=== PATIENT | male | born 1985 | race American Indian/Alaskan Native ===

== ENCOUNTER 2018-03-05 10:36 | Emergency (ER) | payer MEDICAID ==
[2018-03-05 12:03] VITALS: BP 140/83
[2018-03-05] MEDS ORDERED: XYLOCAINE 2% INFILTRATI ONE (12:51)
[2018-03-05] MEDS ORDERED: MOTRIN PO ONE (12:51)
--- NOTE | 2018-03-05 13:22 | Emergency Department Report ---
Abscess Boil HPI - HPI Chief Complaint: Skin/Abscess/Foreign Body Stated Complaint: ABSESS ON BACK Time Seen by Provider: 03/05/18 12:15 Duration: 3 Days Location: Back Severity: Mild History: Yes Pain, No Fever, No Purulent Drainage, No Numbness, No Foreign Body , No Previous History, No Insect Bite HPI: This is a 32-year-old male nontoxic, well nourished in appearance, no acute signs of distress presents to the ED with c/o of acute on chronic pilonidal abscess. Patient stated this is a on going since the age of 17. Patient stated had incision and drainage did a about 7 times total. Patient denies any pus, drainage, fever, chills, nausea, vomiting, chest precautions of breath, headache or stiff neck. Patient denies any trauma. Denies any allergies. Denies significant past medical history. Home Medications: Previous Rx's Medication Instructions Recorded Last Taken Type Clindamycin [Clindamycin CAP] 300 mg PO Q6H 7 Days capsule 03/05/18 Unknown Rx HYDROcodone/ACETAMINOPHEN [Surrency 1 each PO Q8H PRN #15 tablet 03/05/18 Unknown Rx 7.5-325 Tablet] Ibuprofen [Motrin] 600 mg PO Q8H PRN #30 tablet 03/05/18 Unknown Rx Allergies/Adverse Reactions: Allergies Allergy/AdvReac Type Severity Reaction Status Date / Time No Known Allergies Allergy Unverified 03/05/18 12:02 ED Review of Systems ROS: Stated complaint: ABSESS ON BACK Other details as noted in HPI Constitutional: denies: chills, fever Eyes: denies: eye pain, eye discharge, vision change ENT: denies: ear pain, throat pain Respiratory: denies: cough, shortness of breath, wheezing Cardiovascular: denies: chest pain, palpitations Endocrine: no symptoms reported Gastrointestinal: denies: abdominal pain, nausea, diarrhea Genitourinary: denies: urgency, dysuria Musculoskeletal: denies: back pain, joint swelling, arthralgia Skin: denies: rash, lesions Neurological: denies: headache, weakness, paresthesias Psychiatric: denies: anxiety, depression Hematological/Lymphatic: denies: easy bleeding, easy bruising ED Past Medical Hx - Surgical History Additional Surgical History: neck, back - Social History Smoking Status: Current Every Day Smoker Substance Use Type: None - Medications Home Medications: Home Medications Medication Instructions Recorded Confirmed Last Taken Type Clindamycin [Clindamycin CAP] 300 mg PO Q6H 7 Days capsule 03/05/18 Unknown Rx HYDROcodone/ACETAMINOPHEN [Surrency 1 each PO Q8H PRN #15 tablet 03/05/18 Unknown Rx 7.5-325 Tablet] Ibuprofen [Motrin] 600 mg PO Q8H PRN #30 tablet 03/05/18 Unknown Rx ED Abscess Boil Physical Exam - Exam General: Vital signs noted. No distress. Alert and acting appropriately. GENERAL: The patient is a well-developed, well-nourished in no apparent distress. Patient is alert and acting appropriately for age. Alert and oriented 3, no apparent distress, normal gait, atraumatic. HEENT: Head is normocephalic and atraumatic. PERRL, Extraocular muscles are intact. Pupils are equal, round, and reactive to light and accommodation. Nares appeared normal. Mouth is well hydrated and without lesions. Mucous membranes are moist. Posterior pharynx clear of any exudate or lesions. Mouth is well hydrated and without lesions. Tonsils not erythematous or swollen. Uvula midline. Tongue elevated. Mucous members are moist. Posterior pharynx clear, no exudate or lesions. Patent airways. NECK: Supple. No carotid bruits. No lymphadenopathy or thyromegaly.nontender. No meningitic signs are noted. LUNGS: Clear to auscultation. Non labor breathing. No intercostal retractions. Symmetrical with respiration, no wheezing, no rales, or crackles. HEART: Regular rate and rhythm without murmur, rubs or gallops. No reproducible. S1, S2 present, regular rate and rhythm without murmur, no rubs, no gallops. ABDOMEN: Soft, nontender, and nondistended. Positive bowel sounds. No hepatosplenomegaly was noted. No guarding or rebound tenderness, negative epigastric bruit. Negative psoas sign, negative moon sign, negative McBurneys sign EXTREMITIES: Without any cyanosis, clubbing, rash, lesions or edema. Peripheral pulses intact. Capillary refill less than 2 seconds. Full range of motion bilaterally. NEUROLOGIC: Cranial nerves II through XII are grossly intact. Alert and oriented x 3. Normal gait. Symmetrical strength and sensation. Reflexes 2+ throughout. Cerebellar testing normal. GCS score of 15. PSYCHIATRIC: Normal affect with no suicidal or homicidal ideations. Skin: 5 cm pilonidal abscess with indruation and flutance. Tender to touch. No pus or drainge. Front/Back of Body, Lg (Color): 1 - abscess Size: 5 cm Exam: Yes Tenderness, Yes Fluctuance, Yes Normal Neurologic Exam, Yes Normal Circulation, No Surrounding Cellulites/Erythema, No Lymphangitis, No Crepitation , No Heart Murmur I & D Note - I & D Note I & D Note: Under sterile field, I used Betadine to cleanse the area. I then used 2% lidocaine plain with 25-gauge 5/8 needle to inject area for anesthetic purposes. Total volume injected 5 mL. I then used an 11 blade to make a 1 cm incision. About 10 mL's of purulent drainage has been noted. I then used a hemostat to break the abscess formation. I then used sterile 0.9% normal saline flush to flush the wound with total volume of 80 mL used. I then put a 1 /2 iodoform packing to the incision. A sterile 4 x 4 with tape has been applied as dressing. Bleeding is under control. Patient tolerated the procedure well with no signs of distress noted. ED Course Vital Signs 03/05/18 11:57 Temperature 97.9 F Pulse Rate 83 Respiratory 20 Rate Blood Pressure 140/83 O2 Sat by Pulse 98 Oximetry - Reevaluation(s) Reevaluation #1: 03/05/18 13:22 Patient is speaking in full sentences with no signs of distress noted. - Consultations Consultation #1: 03/05/18 13:22 Patient has been consulted with Dr. Hassan about patient history, physical exam , and labs and examined and screened patient and agrees to ED plan of care. Critical care attestation.: If time is entered above; I have spent that time in minutes in the direct care of this critically ill patient, excluding procedure time. ED Medical Decision Making - Medical Decision Making This is a 32-year-old male that presents with pilonidal abscess. Patient is stable and was examined by me. This is incision and drainage and has been performed and patient tolerated well. A sterile dressing has been applied. Patient was educated on proper wound care. Patient is discharged with Clindamycin and NOrco and was instructed not to operate any machinery while taking Surrency due to drowsiness. Patient was instructed to return in 2 days for packing removal. Patient was instructed to refer to Follow-up with a primary care doctor in 3-5 days or if symptoms worsen and continue return to emergency room as soon as possible. At time of discharge, the patient does not seem toxic or ill in appearance. No acute signs of distress noted. Patient agrees to discharge treatment plan of care. No further questions noted by the patient. ED Disposition Clinical Impression: Pilonidal abscess, Encounter for incision and drainage procedure Disposition: TO HOME OR SELFCARE Is pt being admited?: No Does the pt Need Aspirin: No Condition: Stable Instructions: Abscess Incision and Drainage (ED), Abscess (ED) Additional Instructions: Follow-up with a primary care doctor in 3-5 days or if symptoms worsen and continue return to emergency room as soon as possible. Return in 2 days for packing removal and reassessment of your abscess. Prescriptions: Clindamycin [Clindamycin CAP] 300 mg PO Q6H 7 Days capsule HYDROcodone/ACETAMINOPHEN [Surrency 7.5-325 Tablet] 1 each PO Q8H PRN #15 tablet PRN Reason: Pain Ibuprofen [Motrin] 600 mg PO Q8H PRN #30 tablet PRN Reason: Pain Referrals: PRIMARY CAREMD [Primary Care Provider] - 3-5 Days SAFIA MOCK MD [Staff Physician] - 3-5 Days [facility] [Outside] - 3-5 Days [facility] [Outside] - 3-5 Days Forms: Work/School Release Form(ED)
== END 2018-03-05 14:42 | disposition home or self-care (01) ==
LOC: ED 10:36
DX: L05.01 Pilonidal cyst with abscess (principal); L02.212 Cutaneous abscess of back [any part, except buttock and flank]; F17.200 Nicotine dependence, unspecified, uncomplicated

== ENCOUNTER 2019-08-27 19:40 | Inpatient (IN) | payer MEDICAID ==
--- NOTE | 2019-08-27 19:50 | Event Note ---
ED Screening Note Date of service: 08/27/19 Time: 19:47 ED Screening Note: 33 y o female presents to Ed cc of sob and chestpain x 3 days denies asthma or medical hx This initial assessment/diagnostic orders/clinical plan/treatment(s) is/are subject to change based on patients health status, clinical progression and re- assessment by fellow clinical providers in the ED. Further treatment and workup at subsequent clinical providers discretion. Patient/guardian urged not to elope from the ED as their condition may be serious if not clinically assessed and managed. Initial orders include: labs,ekg,cxr
[2019-08-27 20:18] LABS: Basophils # (Auto) 0.1 K/mm3 (0.0-0.1); Eosinophils # (Auto) 0.1 K/mm3 (0.0-0.4); Eosinophils % (Auto) 0.9 % (0.0-4.3); Hematocrit 39.3 % (35.5-45.6); Hemoglobin 12.6 gm/dl (11.8-15.2); Lymphocytes # (Auto) 2.9 K/mm3 (1.2-5.4); Lymphocytes % (Auto) 20.9 % (13.4-35.0); Mean Corpuscular HGB Conc 32 % (32-34); Mean Corpuscular Volume 74 fl (84-94); Monocytes # (Auto) 0.9 K/mm3 (0.0-0.8); Monocytes % (Auto) 6.8 % (0.0-7.3); Platelet Count 247 K/mm3 (140-440); Red Blood Count 5.32 M/mm3 (3.65-5.03); Red Cell Distribution Width 16.1 % (13.2-15.2)
[2019-08-27 20:37] LABS: Creatine Kinase MB 2.6 ng/mL (0.0-4.0)
[2019-08-27 20:52] LABS: BUN/Creatinine Ratio 12; Blood Urea Nitrogen 11 mg/dL (9-20); Calcium 8.9 mg/dL (8.4-10.2); Hemolysis Index 8
--- NOTE | 2019-08-27 21:03 | XRay Report ---
CHEST 2 VIEWS INDICATION / CLINICAL INFORMATION: Dyspnea. COMPARISON: None available. FINDINGS: SUPPORT DEVICES: None. HEART / MEDIASTINUM: Moderate enlargement of the cardiac silhouette with pulmonary venous hypertensio n LUNGS / PLEURA: Mild increase in interstitial markings bilaterally. No pneumothorax. ADDITIONAL FINDINGS: No significant additional findings. IMPRESSION: 1. Moderate cardiomegaly and interstitial pulmonary edema. Signer Name: Ramses Paniagua MD Signed: 08/27/2019 8:58 PM Workstation Name: [id number]
--- NOTE | 2019-08-27 21:36 | Emergency Department Report ---
ED General Adult HPI - General Chief complaint: Chest Pain Stated complaint: DIFF BREATHING CHEST PAIN LEG SWOLLEN Time Seen by Provider: 08/27/19 21:16 Source: patient, RN notes reviewed Mode of arrival: Ambulatory Limitations: No Limitations - History of Present Illness Initial comments: Primary care doctor: [facility] The patient is a 33-year-old gentleman, with a history of morbid obesity. Unknown if he has a history of hypertension. Also has a history of hidradenitis suppuritiva. He presents to the ER with a complaint of bilateral leg pain and leg swelling, cough, chest wall pain, and shortness of breath. He does not have a history of sleep apnea that he is aware of. He denies DVT and pulmonary embolism risk factors. Symptoms have been going on for a few weeks, and there gradually getting worse. -: Gradual Location: chest, left, right, lower extremity Severity scale (0 -10): 4 Consistency: intermittent Improves with: rest Worsens with: movement - Related Data Previous Rx's Medication Instructions Recorded Last Taken Type Aspirin [Aspirin BABY CHEW TAB] 81 mg PO QDAY #30 tab.chew 08/28/19 Unknown Rx Metoprolol [Lopressor TAB] 50 mg PO BID #60 tablet 08/28/19 Unknown Rx Pantoprazole [Protonix] 40 mg PO QDAY #30 tablet 08/28/19 Unknown Rx Pravastatin [Pravachol] 40 mg PO QHS #30 tablet 08/28/19 Unknown Rx amLODIPine 10 mg PO QDAY #30 tablet 08/28/19 Unknown Rx Allergies Allergy/AdvReac Type Severity Reaction Status Date / Time No Known Allergies Allergy Unverified 03/05/18 12:02 ED Review of Systems ROS: Stated complaint: DIFF BREATHING CHEST PAIN LEG SWOLLEN Other details as noted in HPI Constitutional: malaise, weakness ENT: congestion Respiratory: cough, shortness of breath, SOB with exertion, SOB at rest, wheezing Cardiovascular: chest pain, edema. denies: syncope Gastrointestinal: denies: vomiting Genitourinary: denies: dysuria Musculoskeletal: arthralgia, myalgia Skin: denies: lesions Neurological: weakness Hematological/Lymphatic: denies: easy bleeding ED Past Medical Hx - Past Medical History Previous Medical History?: Yes Additional medical history: hidranitis supp. - Surgical History Past Surgical History?: Yes Additional Surgical History: neck, lower back, left rib, "cut open in my throat " - Social History Smoking Status: Current Every Day Smoker Substance Use Type: Marijuana - Medications Home Medications: Home Medications Medication Instructions Recorded Confirmed Last Taken Type Aspirin [Aspirin BABY CHEW TAB] 81 mg PO QDAY #30 tab.chew 08/28/19 Unknown Rx Metoprolol [Lopressor TAB] 50 mg PO BID #60 tablet 08/28/19 Unknown Rx Pantoprazole [Protonix] 40 mg PO QDAY #30 tablet 08/28/19 Unknown Rx Pravastatin [Pravachol] 40 mg PO QHS #30 tablet 08/28/19 Unknown Rx amLODIPine 10 mg PO QDAY #30 tablet 08/28/19 Unknown Rx ED Physical Exam - General Limitations: No Limitations General appearance: alert, in no apparent distress, anxious, obese - Head Head exam: Present: atraumatic, normocephalic - Eye Eye exam: Present: normal appearance, EOMI. Absent: nystagmus - ENT ENT exam: Present: normal exam, normal orophraynx, mucous membranes moist, normal external ear exam - Neck Neck exam: Present: normal inspection, full ROM. Absent: tenderness, meningismus - Respiratory Respiratory exam: Present: respiratory distress, rales, accessory muscle use. Absent: chest wall tenderness, decreased breath sounds - Cardiovascular Cardiovascular Exam: Present: normal rhythm, tachycardia, normal heart sounds. Absent: systolic murmur, diastolic murmur, rubs, gallop - GI/Abdominal GI/Abdominal exam: Present: soft. Absent: distended, tenderness, guarding, rebound, rigid, pulsatile mass - Rectal Rectal exam: Present: deferred - Extremities Exam Extremities exam: Present: normal inspection, full ROM, pedal edema, other (2+ pulses noted in the bilateral upper and lower extremities. There is no long bony tenderness. The muscular compartments are soft. The pelvis is stable.). Absent: calf tenderness - Back Exam Back exam: Present: normal inspection, full ROM. Absent: tenderness, CVA tenderness (R), CVA tenderness (L), paraspinal tenderness, vertebral tenderness - Neurological Exam Neurological exam: Present: alert, oriented X3, normal gait, other (there is no facial droop. The tongue is midline. The extraocular movements are intact bilaterally. ). Absent: motor sensory deficit - Psychiatric Psychiatric exam: Present: normal affect, normal mood - Skin Skin exam: Present: warm, dry, intact, normal color. Absent: rash ED Course Vital Signs 08/27/19 08/27/19 08/27/19 19:47 21:16 21:57 Temperature 100 F H Pulse Rate 107 H 102 H Respiratory 26 H 14 24 Rate Blood Pressure 189/110 177/116 Blood Pressure 189/110 [Right] O2 Sat by Pulse 98 97 Oximetry 08/27/19 08/27/19 08/27/19 22:00 22:01 23:20 Temperature Pulse Rate 95 H 95 H Respiratory 22 12 Rate Blood Pressure 177/116 Blood Pressure 153/96 [Right] O2 Sat by Pulse 99 Oximetry 08/27/19 08/28/19 08/28/19 23:30 00:30 01:20 Temperature Pulse Rate 94 H 95 H Respiratory 18 25 H Rate Blood Pressure 143/86 156/116 156/116 Blood Pressure [Right] O2 Sat by Pulse 96 97 98 Oximetry 08/28/19 08/28/19 08/28/19 01:30 01:40 01:50 Temperature Pulse Rate 92 H 91 H Respiratory Rate Blood Pressure 156/116 156/116 156/116 Blood Pressure [Right] O2 Sat by Pulse 92 99 99 Oximetry 08/28/19 08/28/19 08/28/19 02:00 02:10 02:27 Temperature Pulse Rate 95 H 94 H 97 H Respiratory Rate Blood Pressure 156/116 156/116 Blood Pressure [Right] O2 Sat by Pulse 96 98 Oximetry - Reevaluation(s) Reevaluation #1: 08/27/19 23:13 Differential diagnosis, including but not limited to: Congestive heart failure, right-sided heart failure, obstructive sleep apnea, pneumonia, pulmonary embolism, fluid overload, obesity hypoventilation syndrome Assessment and plan: 33-year-old gentleman, morbidly obese, reports that he has many symptoms of sleep apnea, including daytime sleepiness, shortness of breath during physical exertion, periods of falling asleep, with evidence of right- sided heart dysfunction, manifest by lower extremity edema, jugular venous distention. He denies DVT and pulmonary embolism risk factors. He is low risk by well's criteria. However, he is tachycardic, tachypnea with a low-grade temperature, a d-dimer was sent prior to my personal evaluation, and therefore, CT scan of the chest was ordered. Patient is amenable to hospitalization. He will be given pain medication, Lasix, and hydralazine. He is amenable to hospitalization. Extensive discussion had with patient and his significant other, we discussed the importance of diet and last modifications, weight loss, and compliant with outpatient follow-up to have a sleep study, and probable need for CPAP/ APAP She and family verbalize understanding and are amenable to this plan of care. 08/27/19 23:40 Reevaluation #2: 08/27/19 23:29 cta chest negative for pe Patient to be admitted to the medical service for further evaluation and management. I find the patient to be moderate risk by the heart score, he is given a heart score of 4. Reevaluation #3: 08/27/19 23:32 Hospital physician, Dr. Tijerina accepts patient to the medical service. ED Medical Decision Making - Lab Data Result diagrams: 08/27/19 20:04 08/27/19 20:04 Vital Signs 08/27/19 08/27/19 19:47 21:16 Temperature 100 F H Pulse Rate 107 H 102 H Respiratory 26 H 14 Rate Blood Pressure 189/110 177/116 Blood Pressure 189/110 [Right] O2 Sat by Pulse 98 97 Oximetry Lab Results 08/27/19 08/27/19 08/27/19 Range/Units 20:04 20:04 20:04 WBC 13.8 H (4.5-11.0) K/mm3 RBC 5.32 H (3.65-5.03) M/mm3 Hgb 12.6 (11.8-15.2) gm/dl Hct 39.3 (35.5-45.6) % MCV 74 L (84-94) fl MCH 24 L (28-32) pg MCHC 32 (32-34) % RDW 16.1 H (13.2-15.2) % Plt Count 247 (140-440) K/mm3 Lymph % (Auto) 20.9 (13.4-35.0) % [place] % (Auto) 6.8 (0.0-7.3) % Eos % (Auto) 0.9 (0.0-4.3) % Baso % (Auto) 1.0 (0.0-1.8) % Lymph # 2.9 (1.2-5.4) K/mm3 [place] # 0.9 H (0.0-0.8) K/mm3 Eos # 0.1 (0.0-0.4) K/mm3 Baso # 0.1 (0.0-0.1) K/mm3 Seg Neutrophils % 70.4 H (40.0-70.0) % Seg Neutrophils # 9.7 H (1.8-7.7) K/mm3 D-Dimer 255.72 H (0-234) ng/mlDDU Sodium 137 (137-145) mmol/L Potassium 4.0 (3.6-5.0) mmol/L Chloride 100.0 (98-107) mmol/L Carbon Dioxide 24 (22-30) mmol/L Anion Gap 17 mmol/L BUN 11 (9-20) mg/dL Creatinine 0.9 (0.8-1.5) mg/dL Estimated GFR > 60 ml/min BUN/Creatinine Ratio 12 % Glucose 136 H (75-100) mg/dL Calcium 8.9 (8.4-10.2) mg/dL Total Creatine Kinase 294 H (55-170) units/L CK-MB (CK-2) 2.6 (0.0-4.0) ng/mL CK-MB (CK-2) Rel Index 0.8 (0-4) Troponin T < 0.010 (0.00-0.029) ng/mL - EKG Data -: EKG Interpreted by Tx EKG shows normal: sinus rhythm Rate: normal - EKG Data 08/27/19 23:12 The EKG shows sinus tachycardia, prolonged QTC 500 ms, motion artifact, HO enlargement, abnormal EKG, no prior for comparison, the EKG is not consistent with ST elevation myocardial infarction. - Radiology Data Radiology results: report reviewed, image reviewed Print Report Referring Physician: SIMON GAMING Patient Name: MICHEAL BECERRA Date of : 1985 Sex: Male Report Date: 2019-08-27 Report Status: Finalized Findings [facility] [address] [place] [address] XRay Report Signed Patient: MICHEAL BECERRA MR#: [id number] 47 : 1985 Acct:[id number] Age/Sex: 33 / M ADM Date: 08/27/19 Loc: ED Attending Dr: Ordering Physician: JORDEN CARPIO Date of Service: 08/27/19 Procedure(s): XR chest routine 2V Accession Number(s): [id number] cc: JORDEN CARPIO Fluo ro Time In Minutes: CHEST 2 VIEWS INDICATION / CLINICAL INFORMATION: Dyspnea. COMPARISON: None available. FINDINGS: SUPPORT DEVICES: None. HEART / MEDIASTINUM: Moderate enlargement of the cardiac silhouette with pulmonary venous hypertension LUNGS / PLEURA: Mild increase in interstitial markings isael aterally. No pneumothorax. ADDITIONAL FINDINGS: No significant additional findings. IMPRESSION: 1. Moderate cardiomegaly and interstitial pulmonary edema. Signer Name: Ramses Paniagua MD Signed: 08/27/2019 8:58 PM Workstation Name: [id number] Transcribed By: YURI Dictated By: Ramses Paniagua MD Electronically Authenticated By: Ramses Paniagua MD Signed Date/Time: 08/27/192057 Critical care attestation.: If time is entered above; I have spent that time in minutes in the direct care of this critically ill patient, excluding procedure time. ED Disposition Clinical Impression: Hypertensive urgency, Acute chest pain, Acute dyspnea Disposition: -09 OP ADMIT IP TO THIS HOSP Is pt being admited?: Yes Does the pt Need Aspirin: Yes Condition: Stable
[2019-08-27] MEDS ORDERED: FAMOTIDINE 20 MG/2 ML INJ IV ONE (21:46)
[2019-08-27] MEDS ORDERED: hydrALAZINE 20 MG/1 ML INJ IV ONE (21:46)
[2019-08-27] MEDS ORDERED: ACETAMINOPHEN 325 MG TAB PO ONE (21:46)
[2019-08-27] MEDS ORDERED: FUROSEMIDE 40 MG/4 ML INJ IV ONE (21:47)
[2019-08-27 22:27] LABS: Alanine Aminotransferase 19 units/L (7-56); Albumin 3.4 g/dL (3.9-5)
[2019-08-27 22:31] LABS: Bilirubin,Direct < 0.2 mg/dL (0-0.2)
--- NOTE | 2019-08-27 23:09 | Cat Scan Report ---
CT angio chest INDICATION / CLINICAL INFORMATION: cp sob. TECHNIQUE: Precontrast bolus timing images were obtained followed by postcontrast axial and reformatted images. 3-plane MIP reconstructions were performed at an independent workstation by the technologist. All CT scans at this location are performed using CT dose reduction for ALARA by means of automated exposure control. COMPARISON: None available. FINDINGS: Pulmonary arterial enhancement is normal. No evidence of pulmonary embolus. No acute lung disease. Mediastinal images are normal. Limited upper abdominal and skeletal structures are unremarkable. IMPRESSION: 1. Negative pulmonary CTA. Signer Name: Ramses Paniagua MD Signed: 08/27/2019 11:04 PM Workstation Name: [id number]
[2019-08-27] MEDS ORDERED: ONDANSETRON 4 MG/2 ML INJ IV PRN (23:44)
[2019-08-27] MEDS ORDERED: ALBUTEROL 2.5 MG/3 ML NEBU IH PRN (23:44)
[2019-08-27] MEDS ORDERED: NITROGLYCERIN 0.4 MG TAB SUBL SL PRN (23:44)
[2019-08-27] MEDS ORDERED: ACETAMINOPHEN 325 MG TAB PO PRN (23:44)
[2019-08-27] MEDS ORDERED: hydrALAZINE 20 MG/1 ML INJ IV PRN (23:50)
--- NOTE | 2019-08-28 01:41 | History and Physical Report ---
<JEFF CHAN - Last Filed: 08/28/19 01:36> History of Present Illness Date of examination: 08/27/19 Date of admission: 08/27/19 23:44 Chief complaint: Chest Pain, SOB History of present illness: 33-year-old -[place] obese male is a current every day marijuana smoker with history of hypertension noncompliant with medication, and hidranitis suppurativa who presents to [facility] ED with complaints of sub sternal non-radiating chest pain and sob for the past week. Pt's is present at bedside and has assisted in providing history. Pt states that he has been experiencing intermittent CP and SOB with activity for the past week. Over the past 2 days his chest pain has become more frequent and is SOB has become more persistent. He rates his pain 7/10 and describes it as sharp. The chest pain is substernal and non-radiating. He denies n/v, or diaphoresis. His SOB is worst with activity and improves with rest. Pt also complains of BLE edema. Pt admits to being non- compliant with antihypertensive meds. Past History Past Medical History: hypertension (non compliant with meds), other ( hidranitis suppurativa) Past Surgical History: Other ( neck, lower back, left rib, ) Social history: , other (everyday marijuana smoker) Family history: no significant family history Medications and Allergies Allergies Allergy/AdvReac Type Severity Reaction Status Date / Time No Known Allergies Allergy Unverified 03/05/18 12:02 Home Medications Medication Instructions Recorded Confirmed Last Taken Type Clindamycin [Clindamycin CAP] 300 mg PO Q6H 7 Days capsule 03/05/18 Unknown Rx HYDROcodone/ACETAMINOPHEN [[place] 1 each PO Q8H PRN #15 tablet 03/05/18 Unknown Rx 7.5-325 Tablet] Ibuprofen [Motrin] 600 mg PO Q8H PRN #30 tablet 03/05/18 Unknown Rx Active Meds: Active Medications Acetaminophen (Tylenol) 650 mg PO Q4H PRN PRN Reason: Pain MILD(1-3)/Fever >100.5/[place] Albuterol (Proventil) 2.5 mg IH Q3HRT PRN PRN Reason: Shortness Of Breath Alprazolam (Xanax) 0.5 mg PO ONCE ONE Stop: 08/28/19 02:11 Aspirin (Baby Aspirin) 81 mg PO QDAY [facility] Heparin Sodium (Porcine) (Heparin) 5,000 unit SUB-Q Q12HR [facility] Hydralazine HCl (Apresoline) 10 mg IV Q4H PRN PRN Reason: Blood Pressure Morphine Sulfate (Morphine) 2 mg IV Q4H PRN PRN Reason: Pain, Moderate (4-6) Nitroglycerin (Nitrostat) 0.4 mg SL Q5M PRN PRN Reason: Chest Pain Ondansetron HCl (Zofran) 4 mg IV Q8H PRN PRN Reason: Nausea And Vomiting Sodium Chloride (Sodium Chloride Flush Syringe 10 Ml) 10 ml IV BID DANNIE Sodium Chloride (Sodium Chloride Flush Syringe 10 Ml) 10 ml IV PRN PRN PRN Reason: LINE FLUSH Review of Systems All systems: negative Cardiovascular: chest pain, shortness of breath, dyspnea on exertion, leg edema Respiratory: cough, shortness of breath, dyspnea on exertion Exam - Physical Exam Narrative exam: Physical exam General appearance: Present: No acute distress, alert and oriented 3, obese, adult -[place] male - EENT Eyes: Present: PERRL, EOM intact ENT: hearing intact, normal dentition - Neck Neck: Present: supple, normal ROM - Respiratory Respiratory effort: Non-labored Respiratory: Diminished bases - Cardiovascular Heart rate: 95 (bpm) Rhythm: Sinus rhythm Heart Sounds: Present: S1 & S2. Absent: rub, click - Extremities Extremities: no ischemia, pulses intact, pitting bilateral lower extremity edema - Peripheral Assessment Peripheral Pulses: within normal limits - Abdominal General gastrointestinal: Obese, soft, non-tender, normal bowel sounds - Integumentary Integumentary: Present: warm, dry - Musculoskeletal Musculoskeletal: Able to move all extremities -Neurological Neurological: CN II-XII intact - Psychiatric Psychiatric: Appropriate for situation ,cooperative - Constitutional Vitals: Temp Pulse Resp BP Pulse Ox 100 F H 95 H 25 H 156/116 97 08/27/19 19:47 08/28/19 00:30 08/28/19 00:30 08/28/19 00:30 08/28/19 00:30 Results - Labs CBC & Chem 7: 08/27/19 20:04 08/27/19 20:04 Labs: Laboratory Last Values WBC 13.8 K/mm3 (4.5-11.0) H 08/27/19 20:04 RBC 5.32 M/mm3 (3.65-5.03) H 08/27/19 20:04 Hgb 12.6 gm/dl (11.8-15.2) 08/27/19 20:04 Hct 39.3 % (35.5-45.6) 08/27/19 20:04 MCV 74 fl (84-94) L 08/27/19 20:04 MCH 24 pg (28-32) L 08/27/19 20:04 MCHC 32 % (32-34) 08/27/19 20:04 RDW 16.1 % (13.2-15.2) H 08/27/19 20:04 Plt Count 247 K/mm3 (140-440) 08/27/19 20:04 Lymph % (Auto) 20.9 % (13.4-35.0) 08/27/19 20:04 Davison % (Auto) 6.8 % (0.0-7.3) 08/27/19 20:04 Eos % (Auto) 0.9 % (0.0-4.3) 08/27/19 20:04 Baso % (Auto) 1.0 % (0.0-1.8) 08/27/19 20:04 Lymph # 2.9 K/mm3 (1.2-5.4) 08/27/19 20:04 Davison # 0.9 K/mm3 (0.0-0.8) H 08/27/19 20:04 Eos # 0.1 K/mm3 (0.0-0.4) 08/27/19 20:04 Baso # 0.1 K/mm3 (0.0-0.1) 08/27/19 20:04 Seg Neutrophils % 70.4 % (40.0-70.0) H 08/27/19 20:04 Seg Neutrophils # 9.7 K/mm3 (1.8-7.7) H 08/27/19 20:04 D-Dimer 255.72 ng/mlDDU (0-234) H 08/27/19 20:04 Sodium 137 mmol/L (137-145) 08/27/19 20:04 Potassium 4.0 mmol/L (3.6-5.0) 08/27/19 20:04 Chloride 100.0 mmol/L (98-107) 08/27/19 20:04 Carbon Dioxide 24 mmol/L (22-30) 08/27/19 20:04 Anion Gap 17 mmol/L 08/27/19 20:04 BUN 11 mg/dL (9-20) 08/27/19 20:04 Creatinine 0.9 mg/dL (0.8-1.5) 08/27/19 20:04 Estimated GFR > 60 ml/min 08/27/19 20:04 BUN/Creatinine Ratio 12 % 08/27/19 20:04 Glucose 136 mg/dL (75-100) H 08/27/19 20:04 Calcium 8.9 mg/dL (8.4-10.2) 08/27/19 20:04 Magnesium 1.70 mg/dL (1.7-2.3) 08/27/19 21:52 Total Bilirubin 0.20 mg/dL (0.1-1.2) 08/27/19 21:52 Direct Bilirubin < 0.2 mg/dL (0-0.2) 08/27/19 21:52 Indirect Bilirubin 0.0 mg/dL 08/27/19 21:52 AST 19 units/L (5-40) 08/27/19 21:52 ALT 19 units/L (7-56) 08/27/19 21:52 Alkaline Phosphatase 103 units/L (35-129) 08/27/19 21:52 Total Creatine Kinase 275 units/L (55-170) H 08/27/19 21:52 CK-MB (CK-2) 2.6 ng/mL (0.0-4.0) 08/27/19 20:04 CK-MB (CK-2) Rel Index 0.8 (0-4) 08/27/19 20:04 Troponin T < 0.010 ng/mL (0.00-0.029) 08/27/19 20:04 NT-Pro-B Natriuret Pep 427.1 pg/mL (0-450) 08/27/19 21:52 Total Protein 5.9 g/dL (6.3-8.2) L 08/27/19 21:52 Albumin 3.4 g/dL (3.9-5) L 08/27/19 21:52 Albumin/Globulin Ratio 1.4 % 08/27/19 21:52 - Imaging and Cardiology Imaging and Cardiology: CXR: FINDINGS: SUPPORT DEVICES: None. HEART / MEDIASTINUM: Moderate enlargement of the cardiac silhouette with pulmonary venous hypertension LUNGS / PLEURA: Mild increase in interstitial markings bilaterally. No pneumothorax. ADDITIONAL FINDINGS: No significant additional findings. IMPRESSION: 1. Moderate cardiomegaly and interstitial pulmonary edema. CT angio Chest: FINDINGS: Pulmonary arterial enhancement is normal. No evidence of pulmonary embolus. No acute lung disease. Mediastinal images are normal. Limited upper abdominal and skeletal structures are unremarkable. IMPRESSION: 1. Negative pulmonary CTA. Assessment and Plan Assessment and plan: 33-year-old -[place] obese male is a current every day marijuana smoker with history of hypertension noncompliant with medication, and hidranitis suppurativa who presents to [facility] ED with complaints of sub sternal non-radiating chest pain and sob for the past week, which has worsened over the past 2 days. Acute Chest Pain -Initiate chest pain protocol -Continuous telemetry monitoring -Continue supportive care -Pain mgmt -Troponin negative x1 , will continue to trend -EKG unrevealing for acute ischemic abnormalities -Lexiscan pending -Cardiology consulted Hypertensive urgency -BP on admission 177/116 -Hx Hypertension noncompliant with medication -Continue to monitor BP -Start Norvasc 10 mg daily -IV antihypertensive when necessary Elevated d-dimer -255.72 -CT angiogram chest negative for PE Non-Pitting bilateral lower extremity Edema -Bilateral lower extremity Doppler pending Obesity -BMI 71.3kg -Diet and lifestyle modifications -May benefit from OP weight mgmt program Leukocytosis -WBC on admission 13.8 -MAXIMUM TEMPERATURE 100.0 -Cultures pending -Will hold off on starting abx for now -Continue to monitor CBC -History of hidranitis suppurativa chronic intermittent antibiotic use Marijuana abuse -Current every day marijuana smoker -Counseled for cessation DVT PPX -on Heparin -SCD's Advance Directives: No VTE prophylaxis?: Chemical Plan of care discussed with patient/family: Yes <SAL LAZO - Last Filed: 08/28/19 02:29> History of Present Illness Date of admission: 08/27/19 23:44 Medications and Allergies Active Meds: Active Medications Acetaminophen (Tylenol) 650 mg PO Q4H PRN PRN Reason: Pain MILD(1-3)/Fever >100.5/[place] Albuterol (Proventil) 2.5 mg IH Q3HRT PRN PRN Reason: Shortness Of Breath Amlodipine Besylate (Amlodipine) 10 mg PO QDAY DANNIE Aspirin (Baby Aspirin) 81 mg PO QDAY DANNIE Heparin Sodium (Porcine) (Heparin) 5,000 unit SUB-Q Q12HR [facility] Hydralazine HCl (Apresoline) 10 mg IV Q4H PRN PRN Reason: Blood Pressure Morphine Sulfate (Morphine) 2 mg IV Q4H PRN PRN Reason: Pain, Moderate (4-6) Nitroglycerin (Nitrostat) 0.4 mg SL Q5M PRN PRN Reason: Chest Pain Ondansetron HCl (Zofran) 4 mg IV Q8H PRN PRN Reason: Nausea And Vomiting Sodium Chloride (Sodium Chloride Flush Syringe 10 Ml) 10 ml IV BID DANNIE Sodium Chloride (Sodium Chloride Flush Syringe 10 Ml) 10 ml IV PRN PRN PRN Reason: LINE FLUSH Exam - Constitutional Vitals: Temp Pulse Resp BP Pulse Ox 100 F H 95 H 25 H 156/116 97 08/27/19 19:47 08/28/19 00:30 08/28/19 00:30 08/28/19 00:30 08/28/19 00:30 Results - Labs CBC & Chem 7: 08/27/19 20:04 08/27/19 20:04 Labs: Laboratory Last Values WBC 13.8 K/mm3 (4.5-11.0) H 08/27/19 20:04 RBC 5.32 M/mm3 (3.65-5.03) H 08/27/19 20:04 Hgb 12.6 gm/dl (11.8-15.2) 08/27/19 20:04 Hct 39.3 % (35.5-45.6) 08/27/19 20:04 MCV 74 fl (84-94) L 08/27/19 20:04 MCH 24 pg (28-32) L 08/27/19 20:04 MCHC 32 % (32-34) 08/27/19 20:04 RDW 16.1 % (13.2-15.2) H 08/27/19 20:04 Plt Count 247 K/mm3 (140-440) 08/27/19 20:04 Lymph % (Auto) 20.9 % (13.4-35.0) 08/27/19 20:04 [place] % (Auto) 6.8 % (0.0-7.3) 08/27/19 20:04 Eos % (Auto) 0.9 % (0.0-4.3) 08/27/19 20:04 Baso % (Auto) 1.0 % (0.0-1.8) 08/27/19 20:04 Lymph # 2.9 K/mm3 (1.2-5.4) 08/27/19 20:04 [place] # 0.9 K/mm3 (0.0-0.8) H 08/27/19 20:04 Eos # 0.1 K/mm3 (0.0-0.4) 08/27/19 20:04 Baso # 0.1 K/mm3 (0.0-0.1) 08/27/19 20:04 Seg Neutrophils % 70.4 % (40.0-70.0) H 08/27/19 20:04 Seg Neutrophils # 9.7 K/mm3 (1.8-7.7) H 08/27/19 20:04 D-Dimer 255.72 ng/mlDDU (0-234) H 08/27/19 20:04 Sodium 137 mmol/L (137-145) 08/27/19 20:04 Potassium 4.0 mmol/L (3.6-5.0) 08/27/19 20:04 Chloride 100.0 mmol/L (98-107) 08/27/19 20:04 Carbon Dioxide 24 mmol/L (22-30) 08/27/19 20:04 Anion Gap 17 mmol/L 08/27/19 20:04 BUN 11 mg/dL (9-20) 08/27/19 20:04 Creatinine 0.9 mg/dL (0.8-1.5) 08/27/19 20:04 Estimated GFR > 60 ml/min 08/27/19 20:04 BUN/Creatinine Ratio 12 % 08/27/19 20:04 Glucose 136 mg/dL (75-100) H 08/27/19 20:04 Hemoglobin A1c 6.5 % (4-6) H 08/27/19 20:04 Calcium 8.9 mg/dL (8.4-10.2) 08/27/19 20:04 Magnesium 1.70 mg/dL (1.7-2.3) 08/27/19 21:52 Total Bilirubin 0.20 mg/dL (0.1-1.2) 08/27/19 21:52 Direct Bilirubin < 0.2 mg/dL (0-0.2) 08/27/19 21:52 Indirect Bilirubin 0.0 mg/dL 08/27/19 21:52 AST 19 units/L (5-40) 08/27/19 21:52 ALT 19 units/L (7-56) 08/27/19 21:52 Alkaline Phosphatase 103 units/L (35-129) 08/27/19 21:52 Total Creatine Kinase 275 units/L (55-170) H 08/27/19 21:52 CK-MB (CK-2) 2.6 ng/mL (0.0-4.0) 08/27/19 20:04 CK-MB (CK-2) Rel Index 0.8 (0-4) 08/27/19 20:04 Troponin T < 0.010 ng/mL (0.00-0.029) 08/27/19 20:04 NT-Pro-B Natriuret Pep 427.1 pg/mL (0-450) 08/27/19 21:52 Total Protein 5.9 g/dL (6.3-8.2) L 08/27/19 21:52 Albumin 3.4 g/dL (3.9-5) L 08/27/19 21:52 Albumin/Globulin Ratio 1.4 % 08/27/19 21:52 Assessment and Plan Assessment and plan: 33-year-old man with hypertension noncompliant with medication, morbid obesity, hidranitis suppurativa comes to the ER with complaints of sharp chest pain in the upper chest associated with shortness of breath. He has not taken antihypertensives in 4 years. Patient with hypertensive urgency, agree with plan as stated above. Patient will not fit on table to do stress test b/c of his weight, cardiology consult pending. Add echo, lopressor, aspirin
[2019-08-28] MEDS ORDERED: ALPRAZolam 0.5 MG TAB PO ONE (02:10)
--- NOTE | 2019-08-28 02:33 | Vascular Lab Report ---
DUPLEX DOPPLER LOWER EXTREMITY VEINS, BILATERAL INDICATION / CLINICAL INFORMATION: b/l lower ext swelling. TECHNIQUE: Duplex doppler imaging was performed through the veins of both lower extremities using venous manjinder luigi and other maneuvers. COMPARISON: None available. FINDINGS: Right Common Femoral vein: Negative. Right Femoral vein: Negative. Right Popliteal vein: Negative. Right Calf veins: Negative. Left Common Femoral vein: Negative. Left Femoral vein: Negative. Left Popliteal vein: Negative. Left Calf veins: Negative. Additional findings: None. IMPRESSION: 1. No sonographic evidence for DVT in either lower extremity. Signer Name: Fernando Thorne MD Signed: 08/28/2019 2:29 AM Workstation Name: [employer]
[2019-08-28] MEDS: MORPHINE 2 MG/1 ML INJ IV PRN (04:36)
[2019-08-28] MEDS ORDERED: ALPRAZolam 0.5 MG TAB ONE (04:48)
[2019-08-28] MEDS ORDERED: METOPROLOL TARTRATE 25 MG TAB PO SCH (10:00)
[2019-08-28] MEDS ORDERED: ASPIRIN 81 MG TAB CHEW PO SCH (10:00)
[2019-08-28] MEDS: ASPIRIN 81 MG TAB CHEW PO SCH (10:07)
[2019-08-28] MEDS: amLODIPine 10 MG TAB PO SCH (10:07)
[2019-08-28] MEDS: HEPARIN 5,000 UNIT/1 ML VIAL SUB-Q SCH ×2 (10:08→22:05)
--- NOTE | 2019-08-28 11:15 | Discharge Summary ---
Providers - Providers Date of Admission: 08/27/19 23:44 Date of discharge: 08/28/19 Attending physician: PRO CUETO 08/27/19 Consult to Cardiac Rehabilitation [CONS] Routine Reason For Exam: Phase I 08/27/19 23:46 Consult to Dietitian/Nutrition [CONS] Routine Physician Instructions: Reason For Exam: Reason for Consult: Diet education 08/28/19 00:04 Consult to Physician [CONS] Routine Comment: Consulting Provider: DANICA FIELD Physician Instructions: Reason For Exam: chest pain Primary care physician: FIELD COUNSEL Hospitalization Condition: Stable Pertinent studies: CXR CTA chest LE venous doppler 2d echo Hospital course: 33-year-old -[place] obese male is a current every day marijuana smoker with history of hypertension noncompliant with medication, and hidranitis suppurativa who presents to [facility] ED with complaints of sub sternal non-radiating chest pain and sob for the past week, which has worsened over the past 2 days. Discharge diagnosis: Acute Chest Pain - likely from GERD -Troponin negative -EKG unrevealing for acute ischemic abnormalities, CTA chest negative -Lexiscan cannot done b/o overwt, 2d echo obtained -Cardiology consulted - recommended an outpatient cardiac PET scan. Hypertensive urgency -BP on admission 177/116 -Hx Hypertension and noncompliant with medication -Started Norvasc 10 mg daily, metoprolol 50mg BID and given IV antihypertensive when necessary Elevated d-dimer -255.72 -CT angiogram chest negative for PE Non-Pitting bilateral lower extremity Edema -Bilateral lower extremity Doppler negative, could be from chronic venous stasis Obesity -BMI 71.3kg -Diet and lifestyle modifications -May benefit from OP weight mgmt program Leukocytosis -WBC on admission 13.8 -MAXIMUM TEMPERATURE 100.0 -Cultures negative -Will hold off on starting abx for now -History of hidranitis suppurativa chronic intermittent antibiotic use Marijuana abuse -Current every day marijuana smoker -Counseled for cessation DVT PPX -on Heparin -SCD's Disposition: DC-01 TO HOME OR SELFCARE Time spent for discharge: 34 minutes Core Measure Documentation - Palliative Care Palliative Care/ Comfort Measures: Not Applicable - Core Measures Any of the following diagnoses?: none Exam - Physical Exam Narrative exam: General appearance: Present: No acute distress, alert and oriented 3, obese, adult -[place] male - EENT Eyes: Present: PERRL, EOM intact ENT: hearing intact, normal dentition - Neck Neck: Present: supple, normal ROM - Respiratory Respiratory effort: Non-labored Respiratory: Diminished bases - Cardiovascular Heart rate: 95 (bpm) Rhythm: Sinus rhythm Heart Sounds: Present: S1 & S2. Absent: rub, click - Extremities Extremities: no ischemia, pulses intact, pitting bilateral lower extremity edema - Peripheral Assessment Peripheral Pulses: within normal limits - Abdominal General gastrointestinal: Obese, soft, non-tender, normal bowel sounds - Integumentary Integumentary: Present: warm, dry - Musculoskeletal Musculoskeletal: Able to move all extremities -Neurological Neurological: CN II-XII intact - Psychiatric Psychiatric: Appropriate for situation ,cooperative - Constitutional Vitals: Temp Pulse Resp BP Pulse Ox 98.8 F 92 H 24 154/100 90 08/28/19 07:55 08/28/19 08:00 08/28/19 07:55 08/28/19 07:55 08/28/19 07:55 Plan Activity: advance as tolerated Weight Bearing Status: Weight Bear as Tolerated Diet: low fat, low salt Follow up with: PRIMARY CARE, [Primary Care Provider] - 3-5 Days Prescriptions: Pravastatin [Pravachol] 40 mg PO QHS #30 tablet amLODIPine 10 mg PO QDAY #30 tablet Aspirin [Aspirin BABY CHEW TAB] 81 mg PO QDAY #30 tab.chew Metoprolol [Lopressor TAB] 50 mg PO BID #60 tablet Pantoprazole [Protonix] 40 mg PO QDAY #30 tablet
--- NOTE | 2019-08-28 11:40 | Consultation ---
<ZULEMA LANIER - Last Filed: 08/28/19 11:35> History of Present Illness Consult date: 08/28/19 Consult reason: chest pain History of present illness: Patient is a 33-year old morbidly obese male with a BMI greater than 70. He presented with complaints of shortness of breath, coughs and chest pain, admitted with uncontrolled hypertension. Systolic blood pressure of 189 in the emergency department. Patient gives a history of hypertension, hyperlipidemia, noncompliant with medications. A cardiac consultation has been requested for chest pain evaluation. Chest pain is atypical, musculoskeletal. Patient reports chest pain with deep inspirations and with position changes. A chest CT scan reports no evidence of pulmonary embolism. Cycled troponins are normal and his ECG is benign. Past History Past Medical History: hypertension (non compliant with meds), other ( hidranitis suppurativa) Past Surgical History: Other ( neck, lower back, left rib, ) Social history: , other (everyday marijuana smoker) Family history: no significant family history Medications and Allergies Allergies Allergy/AdvReac Type Severity Reaction Status Date / Time No Known Allergies Allergy Unverified 03/05/18 12:02 Home Medications Medication Instructions Recorded Confirmed Last Taken Type Aspirin [Aspirin BABY CHEW TAB] 81 mg PO QDAY #30 tab.chew 08/28/19 Unknown Rx Metoprolol [Lopressor TAB] 50 mg PO BID #60 tablet 08/28/19 Unknown Rx Pantoprazole [Protonix] 40 mg PO QDAY #30 tablet 08/28/19 Unknown Rx Pravastatin [Pravachol] 40 mg PO QHS #30 tablet 08/28/19 Unknown Rx amLODIPine 10 mg PO QDAY #30 tablet 08/28/19 Unknown Rx Active Meds: Active Medications Acetaminophen (Tylenol) 650 mg PO Q4H PRN PRN Reason: Pain MILD(1-3)/Fever >100.5/[place] Albuterol (Proventil) 2.5 mg IH Q3HRT PRN PRN Reason: Shortness Of Breath Amlodipine Besylate (Amlodipine) 10 mg PO QDAY [facility] Last Admin: 08/28/19 10:07 Dose: 10 mg Documented by: Aspirin (Baby Aspirin) 81 mg PO QDAY [facility] Last Admin: 08/28/19 10:07 Dose: 81 mg Documented by: Heparin Sodium (Porcine) (Heparin) 5,000 unit SUB-Q Q12HR [facility] Last Admin: 08/28/19 10:08 Dose: 5,000 unit Documented by: Hydralazine HCl (Apresoline) 10 mg IV Q4H PRN PRN Reason: Blood Pressure Metoprolol Tartrate (Metoprolol) 50 mg PO BID [facility] Morphine Sulfate (Morphine) 2 mg IV Q4H PRN PRN Reason: Pain, Moderate (4-6) Last Admin: 08/28/19 04:36 Dose: 2 mg Documented by: Nitroglycerin (Nitrostat) 0.4 mg SL Q5M PRN PRN Reason: Chest Pain Ondansetron HCl (Zofran) 4 mg IV Q8H PRN PRN Reason: Nausea And Vomiting Pravastatin Sodium (Pravachol) 40 mg PO QHS [facility] Sodium Chloride (Sodium Chloride Flush Syringe 10 Ml) 10 ml IV BID [facility] Last Admin: 08/28/19 10:07 Dose: 10 ml Documented by: Sodium Chloride (Sodium Chloride Flush Syringe 10 Ml) 10 ml IV PRN PRN PRN Reason: LINE FLUSH Physical Examination Vital Signs Temp Pulse Resp BP Pulse Ox 100 F H 107 H 26 H 189/110 98 08/27/19 19:47 08/27/19 19:47 08/27/19 19:47 08/27/19 19:47 08/27/19 19:47 General appearance: obese HEENT: Positive: PERRL Neck: Positive: trachea midline Cardiac: Positive: Reg Rate and Rhythm Lungs: Positive: Decreased Breath Sounds Neuro: Positive: Grossly Intact Extremities: Absent: edema Results 08/27/19 20:04 08/27/19 20:04 Cardiac Enzymes 08/27/19 08/27/19 Range/Units 20:04 21:52 AST 19 (5-40) units/L CK-MB (CK-2) 2.6 (0.0-4.0) ng/mL CBC 08/27/19 Range/Units 20:04 WBC 13.8 H (4.5-11.0) K/mm3 RBC 5.32 H (3.65-5.03) M/mm3 Hgb 12.6 (11.8-15.2) gm/dl Hct 39.3 (35.5-45.6) % Plt Count 247 (140-440) K/mm3 Lymph # 2.9 (1.2-5.4) K/mm3 [place] # 0.9 H (0.0-0.8) K/mm3 Eos # 0.1 (0.0-0.4) K/mm3 Baso # 0.1 (0.0-0.1) K/mm3 Comprehensive Metabolic Panel 08/27/19 08/27/19 Range/Units 20:04 21:52 Sodium 137 (137-145) mmol/L Potassium 4.0 (3.6-5.0) mmol/L Chloride 100.0 (98-107) mmol/L Carbon Dioxide 24 (22-30) mmol/L BUN 11 (9-20) mg/dL Creatinine 0.9 (0.8-1.5) mg/dL Glucose 136 H (75-100) mg/dL Calcium 8.9 (8.4-10.2) mg/dL Direct Bilirubin < 0.2 (0-0.2) mg/dL Indirect Bilirubin 0.0 mg/dL AST 19 (5-40) units/L ALT 19 (7-56) units/L Alkaline Phosphatase 103 (35-129) units/L Total Protein 5.9 L (6.3-8.2) g/dL Albumin 3.4 L (3.9-5) g/dL Assessment and Plan Atypical chest pain, musculoskeletal CTA: no evidence of PE Hypertension, uncontrolled Noncompliant with medications Morbid obesity Recommend: Optimal BP management. Echocardiogram for LVEF assessment. Patient exceeds weight limit for ischemic cardiac evaluation. We will recommend an outpatient cardiac PET scan. <REMA KEBEDE - Last Filed: 08/28/19 15:24> Medications and Allergies Active Meds: Active Medications Acetaminophen (Tylenol) 650 mg PO Q4H PRN PRN Reason: Pain MILD(1-3)/Fever >100.5/[place] Albuterol (Proventil) 2.5 mg IH Q3HRT PRN PRN Reason: Shortness Of Breath Amlodipine Besylate (Amlodipine) 10 mg PO QDAY [facility] Last Admin: 08/28/19 10:07 Dose: 10 mg Documented by: Aspirin (Baby Aspirin) 81 mg PO QDAY [facility] Last Admin: 08/28/19 10:07 Dose: 81 mg Documented by: Heparin Sodium (Porcine) (Heparin) 5,000 unit SUB-Q Q12HR [facility] Last Admin: 08/28/19 10:08 Dose: 5,000 unit Documented by: Hydralazine HCl (Apresoline) 10 mg IV Q4H PRN PRN Reason: Blood Pressure Metoprolol Tartrate (Metoprolol) 50 mg PO BID [facility] Morphine Sulfate (Morphine) 2 mg IV Q4H PRN PRN Reason: Pain, Moderate (4-6) Last Admin: 08/28/19 04:36 Dose: 2 mg Documented by: Nitroglycerin (Nitrostat) 0.4 mg SL Q5M PRN PRN Reason: Chest Pain Ondansetron HCl (Zofran) 4 mg IV Q8H PRN PRN Reason: Nausea And Vomiting Pravastatin Sodium (Pravachol) 40 mg PO QHS [facility] Sodium Chloride (Sodium Chloride Flush Syringe 10 Ml) 10 ml IV BID [facility] Last Admin: 08/28/19 10:07 Dose: 10 ml Documented by: Sodium Chloride (Sodium Chloride Flush Syringe 10 Ml) 10 ml IV PRN PRN PRN Reason: LINE FLUSH Physical Examination Vital Signs Temp Pulse Resp BP Pulse Ox 100 F H 107 H 26 H 189/110 98 08/27/19 19:47 08/27/19 19:47 08/27/19 19:47 08/27/19 19:47 08/27/19 19:47 Results 08/27/19 20:04 08/27/19 20:04 Cardiac Enzymes 08/27/19 08/27/19 Range/Units 20:04 21:52 AST 19 (5-40) units/L CK-MB (CK-2) 2.6 (0.0-4.0) ng/mL CBC 08/27/19 Range/Units 20:04 WBC 13.8 H (4.5-11.0) K/mm3 RBC 5.32 H (3.65-5.03) M/mm3 Hgb 12.6 (11.8-15.2) gm/dl Hct 39.3 (35.5-45.6) % Plt Count 247 (140-440) K/mm3 Lymph # 2.9 (1.2-5.4) K/mm3 [place] # 0.9 H (0.0-0.8) K/mm3 Eos # 0.1 (0.0-0.4) K/mm3 Baso # 0.1 (0.0-0.1) K/mm3 Comprehensive Metabolic Panel 08/27/19 08/27/19 Range/Units 20:04 21:52 Sodium 137 (137-145) mmol/L Potassium 4.0 (3.6-5.0) mmol/L Chloride 100.0 (98-107) mmol/L Carbon Dioxide 24 (22-30) mmol/L BUN 11 (9-20) mg/dL Creatinine 0.9 (0.8-1.5) mg/dL Glucose 136 H (75-100) mg/dL Calcium 8.9 (8.4-10.2) mg/dL Direct Bilirubin < 0.2 (0-0.2) mg/dL Indirect Bilirubin 0.0 mg/dL AST 19 (5-40) units/L ALT 19 (7-56) units/L Alkaline Phosphatase 103 (35-129) units/L Total Protein 5.9 L (6.3-8.2) g/dL Albumin 3.4 L (3.9-5) g/dL Assessment and Plan I've seen and evaluated the patient and agree with the assessment and plan. Patient presents with atypical chest pain. Echocardiogram is pending. Further ischemic evaluation for this patient is recommended however his weight exceeds the weight limits for the nuclear table and cardiac cath table. Recommend outpatient cardiac PET scan.
[2019-08-28] MEDS ORDERED: FLU VACC QUAD 2019-20 (3 YR UP)/PF 60 MCG/0.5 ML SYRINGE IM ONE (12:00)
--- NOTE | 2019-08-28 16:10 | Progress Note ---
Assessment and Plan New onset CHFrEF 30-35% - patient with cough, b/l LE edema - 2d echo showed Ef 30-35%, has no prior h/o HF - will place on IV lasix, follow further cardiology recommendation Acute Chest Pain -Troponin negative -EKG unrevealing for acute ischemic abnormalities, CTA chest negative -Lexiscan cannot done b/o over wt, 2d echo obtained showed low EF -Cardiology consulted - will follow recommendation Hypertensive urgency -BP on admission 177/116 -Hx Hypertension and noncompliant with medication -Started Norvasc 10 mg daily, metoprolol 50mg BID - will give IV antihypertensive when necessary Elevated d-dimer -255.72 -CT angiogram chest negative for PE Non-Pitting bilateral lower extremity Edema -Bilateral lower extremity Doppler negative, likely from acute HF Obesity -BMI 71.3kg -Diet and lifestyle modifications -May benefit from OP weight mgmt program Leukocytosis -WBC on admission 13.8 -MAXIMUM TEMPERATURE 100.0 -Cultures negative -Will start on empiric abx with levaquin -History of hidranitis suppurativa chronic intermittent antibiotic use Marijuana abuse -Current every day marijuana smoker -Counseled for cessation DVT PPX -on Heparin -SCD's - Physical Exam Narrative exam: General appearance: Present: No acute distress, alert and oriented 3, obese, adult -[place] male - EENT Eyes: Present: PERRL, EOM intact ENT: hearing intact, normal dentition - Neck Neck: Present: supple, normal ROM - Respiratory Respiratory effort: Non-labored Respiratory: Diminished bases - Cardiovascular Heart rate: 95 (bpm) Rhythm: Sinus rhythm Heart Sounds: Present: S1 & S2. Absent: rub, click - Extremities Extremities: no ischemia, pulses intact, pitting bilateral lower extremity edema - Peripheral Assessment Peripheral Pulses: within normal limits - Abdominal General gastrointestinal: Obese, soft, non-tender, normal bowel sounds - Integumentary Integumentary: Present: warm, dry - Musculoskeletal Musculoskeletal: Able to move all extremities -Neurological Neurological: CN II-XII intact - Psychiatric Psychiatric: Appropriate for situation ,cooperative Subjective Date of service: 08/28/19 Interval history: Patient seen and examined c/o cough and SOB with exertion still c/o intermittent chest pain Objective - Constitutional Vitals: Vital Signs - 12hr 08/28/19 08/28/19 08/28/19 07:55 08:00 12:05 Temperature 98.8 F 97.5 F L Pulse Rate 98 H 92 H 90 Respiratory 24 22 Rate Blood Pressure 154/100 144/105 O2 Sat by Pulse 90 87 Oximetry - Labs CBC & Chem 7: 08/27/19 20:04 08/27/19 20:04 Labs: Abnormal lab results 08/27/19 08/27/19 08/27/19 Range/Units 20:04 20:04 20:04 WBC 13.8 H (4.5-11.0) K/mm3 RBC 5.32 H (3.65-5.03) M/mm3 MCV 74 L (84-94) fl MCH 24 L (28-32) pg RDW 16.1 H (13.2-15.2) % [place] # 0.9 H (0.0-0.8) K/mm3 Seg Neutrophils % 70.4 H (40.0-70.0) % Seg Neutrophils # 9.7 H (1.8-7.7) K/mm3 D-Dimer 255.72 H (0-234) ng/mlDDU Glucose 136 H (75-100) mg/dL Hemoglobin A1c (4-6) % Total Creatine Kinase 294 H (55-170) units/L Total Protein (6.3-8.2) g/dL Albumin (3.9-5) g/dL 08/27/19 08/27/19 Range/Units 20:04 21:52 WBC (4.5-11.0) K/mm3 RBC (3.65-5.03) M/mm3 MCV (84-94) fl MCH (28-32) pg RDW (13.2-15.2) % [place] # (0.0-0.8) K/mm3 Seg Neutrophils % (40.0-70.0) % Seg Neutrophils # (1.8-7.7) K/mm3 D-Dimer (0-234) ng/mlDDU Glucose (75-100) mg/dL Hemoglobin A1c 6.5 H (4-6) % Total Creatine Kinase 275 H (55-170) units/L Total Protein 5.9 L (6.3-8.2) g/dL Albumin 3.4 L (3.9-5) g/dL
[2019-08-28] MEDS: levoFLOXacin 750 MG TAB PO SCH (17:14)
[2019-08-28] MEDS: FUROSEMIDE 40 MG/4 ML INJ IV SCH (17:14)
[2019-08-28] MEDS: METOPROLOL TARTRATE 25 MG TAB PO SCH ×2 (22:00→22:06)
[2019-08-28] MEDS: PRAVASTATIN 40 MG TAB PO SCH (22:07)
[2019-08-29] MEDS ORDERED: diphenhydrAMINE 25 MG CAP PO PRN (00:05)
[2019-08-29 05:56] LABS: Basophils % (Auto) 0.4 % (0.0-1.8); Eosinophils # (Auto) 0.2 K/mm3 (0.0-0.4); Eosinophils % (Auto) 2.1 % (0.0-4.3); Hematocrit 41.4 % (35.5-45.6); Hemoglobin 13.2 gm/dl (11.8-15.2); Lymphocytes # (Auto) 1.9 K/mm3 (1.2-5.4); Lymphocytes % (Auto) 18.5 % (13.4-35.0); Mean Corpuscular HGB Conc 32 % (32-34); Mean Corpuscular Volume 75 fl (84-94); Monocytes # (Auto) 0.8 K/mm3 (0.0-0.8); Monocytes % (Auto) 7.3 % (0.0-7.3); Platelet Count 264 K/mm3 (140-440); Red Blood Count 5.55 M/mm3 (3.65-5.03)
[2019-08-29 06:45] LABS: BUN/Creatinine Ratio 14; Blood Urea Nitrogen 11 mg/dL (9-20); Calcium 8.8 mg/dL (8.4-10.2); Hemolysis Index 5
[2019-08-29] MEDS: FUROSEMIDE 40 MG/4 ML INJ IV SCH (09:09)
[2019-08-29] MEDS: ASPIRIN 81 MG TAB CHEW PO SCH (09:09)
[2019-08-29] MEDS: amLODIPine 10 MG TAB PO SCH (09:09)
[2019-08-29] MEDS: METOPROLOL TARTRATE 25 MG TAB PO SCH (09:09)
[2019-08-29] MEDS: levoFLOXacin 750 MG TAB PO SCH (09:10)
[2019-08-29] MEDS: HEPARIN 5,000 UNIT/1 ML VIAL SUB-Q SCH ×2 (09:10→22:01)
--- NOTE | 2019-08-29 10:03 | Progress Note ---
Assessment and Plan Atypical chest pain, musculoskeletal CTA: no evidence of PE Hypertension, uncontrolled Noncompliant with medications Morbid obesity Underlying sleep apnea Echocardiogram reveals a 4 chamber dilated cardiomyopathy with a decreased ejection fraction 30-35%. Advised sodium/fluid restriction. Initiated medical therapy for dilated cardiomyopathy to include diuretics, beta blockers and afterload reduction. Patient exceeds weight limit for inpatient ischemic cardiac evaluation. We will recommend an outpatient cardiac PET scan. Subjective Date of service: 08/29/19 Interval history: Patient reports is breathing is somewhat better. Blood pressure is still not optimal, currently 148/100. Objective Vital Signs Temp Pulse Resp BP Pulse Ox 08/29/19 08:42 98.5 F 86 20 148/100 93 08/29/19 05:46 98.0 F 08/29/19 05:40 87 20 144/99 94 08/28/19 23:19 99.4 F 08/28/19 23:18 94 H 20 148/100 92 08/28/19 22:06 94 H 149/91 08/28/19 21:30 99.5 F 08/28/19 21:28 94 H 24 149/91 94 08/28/19 20:00 94 H 08/28/19 16:38 98.0 F 95 H 22 154/102 96 08/28/19 15:38 96 08/28/19 12:05 97.5 F L 90 22 144/105 87 - Physical Examination General: No Apparent Distress, Other (obesity) HEENT: Positive: PERRL Neck: Positive: trachea midline Cardiac: Positive: Reg Rate and Rhythm Lungs: Positive: Decreased Breath Sounds Neuro: Positive: Grossly Intact Extremities: Absent: edema - Labs and Meds CBC 08/29/19 Range/Units 05:12 WBC 10.5 (4.5-11.0) K/mm3 RBC 5.55 H (3.65-5.03) M/mm3 Hgb 13.2 (11.8-15.2) gm/dl Hct 41.4 (35.5-45.6) % Plt Count 264 (140-440) K/mm3 Lymph # 1.9 (1.2-5.4) K/mm3 [place] # 0.8 (0.0-0.8) K/mm3 Eos # 0.2 (0.0-0.4) K/mm3 Baso # 0.0 (0.0-0.1) K/mm3 Comprehensive Metabolic Panel 08/29/19 Range/Units 05:12 Sodium 138 (137-145) mmol/L Potassium 4.5 (3.6-5.0) mmol/L Chloride 99.6 (98-107) mmol/L Carbon Dioxide 24 (22-30) mmol/L BUN 11 (9-20) mg/dL Creatinine 0.8 (0.8-1.5) mg/dL Glucose 120 H (75-100) mg/dL Calcium 8.8 (8.4-10.2) mg/dL
[2019-08-29] MEDS ORDERED: LISINOPRIL 5 MG TAB PO SCH (14:00)
[2019-08-29] MEDS: MORPHINE 2 MG/1 ML INJ IV PRN ×2 (14:01→22:02)
[2019-08-29] MEDS: NIFEdipine XL 30 MG TAB PO SCH (17:37)
[2019-08-29] MEDS ORDERED: FUROSEMIDE 40 MG/4 ML INJ IV SCH (18:00)
--- NOTE | 2019-08-29 18:06 | Progress Note ---
Assessment and Plan Assessment and plan: --Medical noncompliance; Patient strongly advised to comply with medications, diet Follow-up visits with cardiology, primary care, pulmonary Patient verbalized understanding --Acute systolic congestive heart failure EF 30-35% Continue heart failure medications IV lasix, beta-blockers KORY inhibitors Cardiology following --Four-chamber dilated cardiomyopathy; on echo EF 30 to 35%, continue heart failure medications Input output monitoring, low-sodium diet, fluid restriction --Acute Chest Pain ; Unable to get Lexiscan stress test, due to morbid obesity Ischemia work-up as outpatient per cardiology --Hypertensive urgency; present on admission Moderate control, continue current antihypertensives And when necessary medications --Elevated d-dimer CT angiogram chest negative for PE Bilateral lower extremity Doppler negative for DVT --Morbid obesity: BMI 71.3kg Patient needs aggressive weight reduction Dietary modification and exercise as tolerated When medically stable Patient may benefit from outpatient bariatric surgical consultation For weight reduction program when stable --Possible obstructive sleep apnea; BiPAP CPAP at night Patient needs to follow-up with pulmonary for outpatient sleep study --Leukocytosis; resolved WBC on admission 13.8, Cultures negative to date On empiric abx with levaquin Patient has history of hidranitis suppurativa chronic intermittent antibiotic use --Substance abuse /marijuana abuse Advised to quit recreational drug use Patient verbalized understanding --DVT prophylaxis: Heparin/SCDs Monitor closely and adjust management as needed Possible discharge in 1 to 2 days when medically stable History Interval history: Patient seen and examined medical records reviewed Patient continues to have mild shortness of breath Denies chest pain or palpitation Vital signs noted Hospitalist Physical - Constitutional Vitals: Temp Pulse Resp BP Pulse Ox 98.6 F 80 20 142/86 95 08/29/19 12:03 08/29/19 12:03 08/29/19 12:03 08/29/19 12:03 08/29/19 12:03 General appearance: Present: mild distress, well-nourished, obese (Morbidly obese) - EENT Eyes: Present: PERRL, EOM intact - Neck Neck: Present: supple, normal ROM - Respiratory Respiratory effort: normal Respiratory: bilateral: diminished, rales, negative: rhonchi, wheezing - Cardiovascular Rhythm: regular Heart Sounds: Present: S1 & S2 - Extremities Extremities: no ischemia, No edema - Abdominal General gastrointestinal: soft, non-tender, non-distended, normal bowel sounds - Integumentary Integumentary: Present: clear, warm - Psychiatric Psychiatric: appropriate mood/affect, cooperative - Neurologic Neurologic: moves all extremities Results - Labs CBC & Chem 7: 08/29/19 05:12 08/29/19 05:12 Labs: Laboratory Last Values WBC 10.5 K/mm3 (4.5-11.0) 08/29/19 05:12 RBC 5.55 M/mm3 (3.65-5.03) H 08/29/19 05:12 Hgb 13.2 gm/dl (11.8-15.2) 08/29/19 05:12 Hct 41.4 % (35.5-45.6) 08/29/19 05:12 MCV 75 fl (84-94) L 08/29/19 05:12 MCH 24 pg (28-32) L 08/29/19 05:12 MCHC 32 % (32-34) 08/29/19 05:12 RDW 16.0 % (13.2-15.2) H 08/29/19 05:12 Plt Count 264 K/mm3 (140-440) 08/29/19 05:12 Lymph % (Auto) 18.5 % (13.4-35.0) 08/29/19 05:12 [place] % (Auto) 7.3 % (0.0-7.3) 08/29/19 05:12 Eos % (Auto) 2.1 % (0.0-4.3) 08/29/19 05:12 Baso % (Auto) 0.4 % (0.0-1.8) 08/29/19 05:12 Lymph # 1.9 K/mm3 (1.2-5.4) 08/29/19 05:12 [place] # 0.8 K/mm3 (0.0-0.8) 08/29/19 05:12 Eos # 0.2 K/mm3 (0.0-0.4) 08/29/19 05:12 Baso # 0.0 K/mm3 (0.0-0.1) 08/29/19 05:12 Seg Neutrophils % 71.7 % (40.0-70.0) H 08/29/19 05:12 Seg Neutrophils # 7.5 K/mm3 (1.8-7.7) 08/29/19 05:12 D-Dimer 255.72 ng/mlDDU (0-234) H 08/27/19 20:04 Sodium 138 mmol/L (137-145) 08/29/19 05:12 Potassium 4.5 mmol/L (3.6-5.0) 08/29/19 05:12 Chloride 99.6 mmol/L (98-107) 08/29/19 05:12 Carbon Dioxide 24 mmol/L (22-30) 08/29/19 05:12 Anion Gap 19 mmol/L 08/29/19 05:12 BUN 11 mg/dL (9-20) 08/29/19 05:12 Creatinine 0.8 mg/dL (0.8-1.5) 08/29/19 05:12 Estimated GFR > 60 ml/min 08/29/19 05:12 BUN/Creatinine Ratio 14 % 08/29/19 05:12 Glucose 120 mg/dL (75-100) H 08/29/19 05:12 Hemoglobin A1c 6.5 % (4-6) H 08/27/19 20:04 Calcium 8.8 mg/dL (8.4-10.2) 08/29/19 05:12 Magnesium 1.70 mg/dL (1.7-2.3) 08/27/19 21:52 Total Bilirubin 0.20 mg/dL (0.1-1.2) 08/27/19 21:52 Direct Bilirubin < 0.2 mg/dL (0-0.2) 08/27/19 21:52 Indirect Bilirubin 0.0 mg/dL 08/27/19 21:52 AST 19 units/L (5-40) 08/27/19 21:52 ALT 19 units/L (7-56) 08/27/19 21:52 Alkaline Phosphatase 103 units/L (35-129) 08/27/19 21:52 Total Creatine Kinase 275 units/L (55-170) H 08/27/19 21:52 CK-MB (CK-2) 2.6 ng/mL (0.0-4.0) 08/27/19 20:04 CK-MB (CK-2) Rel Index 0.8 (0-4) 08/27/19 20:04 Troponin T < 0.010 ng/mL (0.00-0.029) 08/28/19 05:18 NT-Pro-B Natriuret Pep 427.1 pg/mL (0-450) 08/27/19 21:52 Total Protein 5.9 g/dL (6.3-8.2) L 08/27/19 21:52 Albumin 3.4 g/dL (3.9-5) L 08/27/19 21:52 Albumin/Globulin Ratio 1.4 % 08/27/19 21:52 Active Medications - Current Medications Current Medications: Generic Name Dose Route Start Last Admin Trade Name Freq PRN Reason Stop Dose Admin Acetaminophen 650 mg 08/27/19 23:44 Tylenol PO Q4H PRN Pain MILD(1-3)/Fever >100.5/[place] Albuterol 2.5 mg 08/27/19 23:44 Proventil IH Q3HRT PRN Shortness Of Breath Aspirin 81 mg 08/28/19 10:00 08/29/19 09:09 Baby Aspirin PO 81 mg QDAY [facility] Administration Carvedilol 6.25 mg 08/29/19 22:00 Coreg PO BID [facility] Diphenhydramine HCl 25 mg 08/29/19 00:05 08/29/19 00:49 Benadryl PO 25 mg QHS PRN Administration Sleep Furosemide 40 mg 08/30/19 10:00 Lasix PO DAILY@0600 [facility] Heparin Sodium (Porcine) 5,000 unit 08/28/19 10:00 08/29/19 09:10 Heparin SUB-Q 5,000 unit Q12HR [facility] Administration Hydralazine HCl 10 mg 08/27/19 23:50 Apresoline IV Q4H PRN Blood Pressure Levofloxacin 750 mg 08/28/19 18:00 08/29/19 09:10 Levaquin PO 750 mg Q24HR [facility] Administration Lisinopril 20 mg 08/30/19 10:00 Zestril PO QDAY [facility] Morphine Sulfate 2 mg 08/27/19 23:44 08/29/19 14:01 Morphine IV 2 mg Q4H PRN Administration Pain, Moderate (4-6) Nifedipine 30 mg 08/29/19 15:00 08/29/19 17:37 Procardia Xl PO 30 mg QDAY [facility] Administration Nitroglycerin 0.4 mg 12/03/19 23:44 Nitrostat SL Q5M PRN Chest Pain Ondansetron HCl 4 mg 08/27/19 23:44 Zofran IV Q8H PRN Nausea And Vomiting Pravastatin Sodium 40 mg 08/28/19 22:00 08/28/19 22:07 Pravachol PO 40 mg QHS [facility] Administration Sodium Chloride 10 ml 08/28/19 10:00 08/29/19 09:10 Sodium Chloride Flush Syringe 10 Ml IV 10 ml BID [facility] Administration Sodium Chloride 10 ml 08/27/19 23:44 Sodium Chloride Flush Syringe 10 Ml IV PRN PRN LINE FLUSH Spironolactone 25 mg 08/30/19 10:00 Aldactone PO QDAY [facility] Nutrition/Malnutrition Assess - Dietary Evaluation Nutrition/Malnutrition Findings: Nutrition Notes Start: 08/28/19 13:02 Freq: Status: Active Protocol: Document 08/28/19 13:02 CT (Rec: 08/28/19 13:05 CT [id number]) Co-Sign 08/28/19 13:02 LP Nutrition Notes Need for Assessment generated from: MD Order,Education Initial or Follow up Brief Note Current Diagnosis Hypertension Other Pertinent Diagnosis Obese, Marijuanna Abuse, noncompliance with meds, edema Current Diet NPO now Labs/Tests A1c 6.5 Pertinent Medications Reviewed Height 5 ft 9 in Weight 217.3 kg [place] Body Weight (kg) 72.72 BMI 70.7 Weight Status Morbidly Obese Subjective/Other Information Consult for diet education for HTN diet and DM diet. Pt accepted the education and handouts. Pt is NPO for an ECHO procedure. Pt states that he was eating well CHANGE ADVISOR. Burn Absent Trauma Absent GI Symptoms None Current % PO Negligible Minimum of two criteria No physical signs of malnutrition #1 Nutrition Diagnosis Food and nutrition-related knowledge deficit Etiology no prior knowledge of HTN or DM diet As Evidenced by Signs and Symptoms Pt acceptance of diet education and handouts Nutrition Intervention Teaching Recipient Patient Learning Readiness Good Teaching Methods Discussion,Handout Response to Teaching Verbalize understanding Education Handouts Provided HTN diet DM diet Barriers to Learning No Barriers RD phone number provided Yes Patient aware of follow up options Yes Revisit per MD consult or patient Sign Off request:
[2019-08-29] MEDS ORDERED: carvediloL 3.125 MG TAB PO SCH (22:00)
[2019-08-29] MEDS: PRAVASTATIN 40 MG TAB PO SCH (22:02)
[2019-08-29] MEDS: carvediloL 6.25 MG TAB PO SCH (22:02)
[2019-08-30] MEDS: MORPHINE 2 MG/1 ML INJ IV PRN (04:33)
[2019-08-30 07:11] LABS: BUN/Creatinine Ratio 14; Blood Urea Nitrogen 11 mg/dL (9-20); Calcium 8.7 mg/dL (8.4-10.2); Hemolysis Index 2
[2019-08-30] MEDS: levoFLOXacin 750 MG TAB PO SCH (09:16)
[2019-08-30] MEDS: ASPIRIN 81 MG TAB CHEW PO SCH (09:16)
[2019-08-30] MEDS: HEPARIN 5,000 UNIT/1 ML VIAL SUB-Q SCH (09:17)
[2019-08-30] MEDS: NIFEdipine XL 30 MG TAB PO SCH (09:17)
[2019-08-30] MEDS: carvediloL 6.25 MG TAB PO SCH (09:17)
[2019-08-30] MEDS ORDERED: LISINOPRIL 20 MG TAB PO SCH (10:00)
[2019-08-30] MEDS ORDERED: FUROSEMIDE 40 MG TAB PO SCH (10:00)
[2019-08-30] MEDS ORDERED: SPIRONOLACTONE 25 MG TAB PO SCH (10:00)
--- NOTE | 2019-08-30 10:37 | Progress Note ---
Assessment and Plan Atypical chest pain, musculoskeletal CTA: no evidence of PE Uncontrolled Hypertension Noncompliant with medications Morbid obesity Underlying sleep apnea Echocardiogram reveals a 4 chamber dilated cardiomyopathy with a decreased ejection fraction 30-35%.The duration of this cardiomyopathy is uncertain. Recommendations: Advised sodium/fluid restriction. Continue medical therapy for dilated cardiomyopathy to include diuretics. Patient exceeds weight limit for inpatient ischemic cardiac evaluation. We will recommend an outpatient cardiac PET scan. Stable cardiac jackson. Once discharged patient will follow up with [facility] September 05 at 230. Subjective Date of service: 08/30/19 Interval history: Patient is sitting up in the bedside chair. He has no complaints. Blood pressure is currently 152/78. Objective Vital Signs Temp Pulse Resp BP Pulse Ox 08/30/19 08:38 98.5 F 89 16 152/78 99 08/30/19 04:36 98.5 F 85 18 101/60 96 08/30/19 00:13 18 08/29/19 23:15 98.2 F 92 H 18 134/85 97 08/29/19 21:00 87 08/29/19 19:31 98.2 F 105 H 18 119/65 95 08/29/19 12:03 98.6 F 80 20 142/86 95 - Physical Examination General: No Apparent Distress, Other (obesity) HEENT: Positive: PERRL Neck: Positive: trachea midline Cardiac: Positive: Reg Rate and Rhythm Lungs: Positive: Decreased Breath Sounds Neuro: Positive: Grossly Intact Extremities: Absent: edema - Labs and Meds Comprehensive Metabolic Panel 08/30/19 Range/Units 06:06 Sodium 136 L (137-145) mmol/L Potassium 4.8 (3.6-5.0) mmol/L Chloride 100.3 (98-107) mmol/L Carbon Dioxide 22 (22-30) mmol/L BUN 11 (9-20) mg/dL Creatinine 0.8 (0.8-1.5) mg/dL Glucose 117 H (75-100) mg/dL Calcium 8.7 (8.4-10.2) mg/dL
--- NOTE | 2019-08-30 12:27 | Discharge Summary ---
Providers - Providers Date of Admission: 08/28/19 16:09 Date of discharge: 08/30/19 Attending physician: TRACY KENNEY 08/27/19 Consult to Cardiac Rehabilitation [CONS] Routine Reason For Exam: Phase I 08/27/19 23:46 Consult to Dietitian/Nutrition [CONS] Routine Physician Instructions: Reason For Exam: Reason for Consult: Diet education 08/28/19 00:04 Consult to Physician [CONS] Routine Comment: Consulting Provider: DANICA FIELD Physician Instructions: Reason For Exam: chest pain Primary care physician: TRAFFIC CONTROL OPERATOR Hospitalization Reason for admission: Chest pain/Shortness of breath Condition: Stable Pertinent studies: CXR CTA chest Lower ext doppler Echo Hospital course: 33-year-old -Tajik obese male is a current every day marijuana smoker with history of hypertension noncompliant with medication, and hidranitis suppurativa who presents to [facility] ED with complaints of sub sternal non-radiating chest pain and sob for the past week. Pt's is present at bedside and has assisted in providing history. Pt states that he has been experiencing int ermittent CP and SOB with activity for the past week. Over the past 2 days his chest pain has become more frequent and is SOB has become more persistent.Admitted,managed appropriately,evaluated by propeller engineer ,medications optimised. Could not get Stress test due to his morbid obesity. edications optimised.Today patient feels better,no new complaints.vital signs stable. Physical exam unremarkable., Stable at discharge. Discharge Diagnosis: --Acute Chest Pain ; Unable to get Lexiscan stress test, due to morbid obesity Ischemia work-up as outpatient per cardiology --Acute systolic congestive heart failure EF 30-35% Continue heart failure medications IV lasix, beta-blockers KORY inhibitors Cardiology following --Four-chamber dilated cardiomyopathy; on echo EF 30 to 35%, continue heart failure medications Input output monitoring, low-sodium diet, fluid restriction --Hypertensive urgency; present on admission Moderate control, continue current antihypertensives And when necessary medications --Elevated d-dimer CT angiogram chest negative for PE Bilateral lower extremity Doppler negative for DVT --Medical noncompliance; Patient strongly advised to comply with medications, diet Follow-up visits with cardiology, primary care, pulmonary Patient verbalized understanding --Morbid obesity: BMI 71.3kg Patient needs aggressive weight reduction Dietary modification and exercise as tolerated Patient may benefit from outpatient bariatric surgical consultation For weight reduction program when stable --Possible obstructive sleep apnea; BiPAP CPAP at night Patient needs to follow-up with pulmonary for outpatient sleep study --Leukocytosis; resolved WBC on admission 13.8, Cultures negative to date On empiric abx with levaquin Patient has history of hidranitis suppurativa chronic intermittent antibiotic use --Substance abuse /marijuana abuse Advised to quit recreational drug use Patient verbalized understanding. Stable at discharge. Disposition: DC-01 TO HOME OR SELFCARE Time spent for discharge: 32 min Core Measure Documentation - Palliative Care Palliative Care/ Comfort Measures: Not Applicable - Core Measures Any of the following diagnoses?: none Exam - Constitutional Vitals: Temp Pulse Resp BP Pulse Ox 98.5 F 87 16 152/78 99 08/30/19 08:38 08/30/19 09:00 08/30/19 08:38 08/30/19 08:38 08/30/19 08:38 General appearance: Present: no acute distress, well-nourished - EENT Eyes: Present: PERRL, EOM intact - Neck Neck: Present: supple, normal ROM - Respiratory Respiratory effort: normal - Cardiovascular Rhythm: regular Heart Sounds: Present: S1 & S2 - Extremities Extremities: no ischemia, No edema - Abdominal General gastrointestinal: Present: soft, non-tender, non-distended, normal bowel sounds - Integumentary Integumentary: Present: clear, warm - Musculoskeletal Musculoskeletal: strength equal bilaterally, generalized weakness - Psychiatric Psychiatric: appropriate mood/affect, cooperative - Neurologic Neurologic: moves all extremities Plan Activity: no restrictions Diet: other (cardiac diet) Additional Instructions: Weight reduction when medically stable. You need outpatient sleep study to rule out obstructive sleep apnea at pulmonary physicians office. follow up with [facility] September 05 at 2:30. Follow up with: CELESTINE HOLLAND MD [Primary Care Provider] - 3-5 Days JIA DUVAL MD [Staff Physician] - 7 Days YASEMIN NOLASCO MD [Staff Physician] - 09/05/19 2:30 pm Prescriptions: Spironolactone [Aldactone] 25 mg PO QDAY #30 tablet Aspirin [Aspirin BABY CHEW TAB] 81 mg PO QDAY #30 tab.chew carvediloL [Coreg] 6.25 mg PO BID #60 tablet Furosemide [Lasix TAB] 40 mg PO DAILY@0600 #30 tablet Pravastatin [Pravachol] 40 mg PO QHS #30 tablet ALBUTEROL Inhaler (OR & NICU) [ProAir HFA Inhaler] 2 puff IH QID PRN #8.5 gram PRN Reason: Shortness Of Breath NIFEdipine XL [Procardia Xl] 30 mg PO QDAY #30 tablet lisinopriL [Zestril TAB] 20 mg PO QDAY #30 tablet
[2019-08-30 13:29] VITALS: BP 143/85
== END 2019-08-30 17:38 | disposition home or self-care (01) | DRG 292 ==
LOC: ED 19:40 → 4A 23:44 → INTOOBSV 23:44 → OBSVTOIN 08-28 16:09
PROVIDERS: ADMIT Internal Medicine; ATTEND Internal Medicine
DX: I11.0 Hypertensive heart disease with heart failure (principal); Z68.45 Body mass index [BMI] 70 or greater, adult; R65.10 Systemic inflammatory response syndrome (SIRS) of non-infectious origin without acute organ dysfunction; I50.21 Acute systolic (congestive) heart failure; I42.0 Dilated cardiomyopathy; E66.01 Morbid (severe) obesity due to excess calories; I16.0 Hypertensive urgency; R79.1 Abnormal coagulation profile; D72.829 Elevated white blood cell count, unspecified; F12.10 Cannabis abuse, uncomplicated; E78.5 Hyperlipidemia, unspecified; G47.30 Sleep apnea, unspecified; Z79.82 Long term (current) use of aspirin; Z79.899 Other long term (current) drug therapy; Z71.3 Dietary counseling and surveillance; Z71.51 Drug abuse counseling and surveillance of drug abuser; Z91.14 Patient's other noncompliance with medication regimen
CPT/HCPCS: 36415; 71046; 71275; 80048; 80076; 82550; 82553; 83036; 83735; 83880; 84484; 85025; 85379; 87040; 90686; 93005; 93010; 93306; 93970; G0378; A9270-GY; J0360; J1644; J1940; J2270; Q9967

== ENCOUNTER 2019-09-13 11:30 | Emergency (ER) | payer MEDICAID ==
[2019-09-13 12:45] VITALS: BP 144/87
--- NOTE | 2019-09-13 12:50 | Event Note ---
ED Screening Note Date of service: 09/13/19 Time: 12:45 ED Screening Note: This is a 33 y.o. M. that presents to the ER with BLE swelling. PMH of CHF, HTN, HLD Reports dyspnea with exertion. This initial assessment/diagnostic orders/clinical plan/treatment(s) is/are subject to change based on patients health status, clinical progression and re- assessment by fellow clinical providers in the ED. Further treatment and workup at subsequent clinical providers discretion. Patient/guardian urged not to elope from the ED as their condition may be serious if not clinically assessed and managed. Initial orders include: Labs and CXR
--- NOTE | 2019-09-13 13:20 | XRay Report ---
CHEST 2 VIEWS INDICATION / CLINICAL INFORMATION: BLE edema. COMPARISON: 08/27/19 FINDINGS: SUPPORT DEVICES: None. HEART / MEDIASTINUM: Heart is upper normal size. LUNGS / PLEURA: Interval improvement in interstitial pulmonary edema. No significant edema or airspac e disease on the current study. No pneumothorax. ADDITIONAL FINDINGS: No significant additional findings. IMPRESSION: 1. No acute pulmonary or pleural findings. Interval improvement in interstitial edema. Signer Name: Rose Ambrosio MD Signed: 09/13/2019 1:16 PM Workstation Name: [id number]
[2019-09-13 14:29] LABS: Basophils # (Auto) 0.1 K/mm3 (0.0-0.1); Basophils % (Auto) 0.5 % (0.0-1.8); Eosinophils # (Auto) 0.1 K/mm3 (0.0-0.4); Eosinophils % (Auto) 1.3 % (0.0-4.3); Hematocrit 43.1 % (35.5-45.6); Hemoglobin 13.8 gm/dl (11.8-15.2); Lymphocytes % (Auto) 31.7 % (13.4-35.0); Mean Corpuscular HGB Conc 32 % (32-34); Mean Corpuscular Volume 74 fl (84-94); Monocytes # (Auto) 0.7 K/mm3 (0.0-0.8); Monocytes % (Auto) 7.5 % (0.0-7.3); Platelet Count 323 K/mm3 (140-440); Red Cell Distribution Width 15.9 % (13.2-15.2)
[2019-09-13 14:50] LABS: Alanine Aminotransferase 21 units/L (7-56); Albumin 4.1 g/dL (3.9-5); BUN/Creatinine Ratio 19; Blood Urea Nitrogen 13 mg/dL (9-20); Calcium 9.2 mg/dL (8.4-10.2); Hemolysis Index 7
== END 2019-09-13 13:00 | disposition left against medical advice (07) ==
LOC: ED 11:30
DX: M79.605 Pain in left leg (principal); M79.604 Pain in right leg; Z53.21 Procedure and treatment not carried out due to patient leaving prior to being seen by health care provider
CPT/HCPCS: 36415; 71046; 80053; 83880; 84484; 85025

== ENCOUNTER 2019-11-07 17:04 | Emergency (ER) | payer MEDICAID ==
--- NOTE | 2019-11-07 18:12 | Emergency Department Report ---
Blank Doc - Documentation Documentation: 34-year-old male that presents with fever, cough, chest pain and SOB. HX of CHF. This initial assessment/diagnostic orders/clinical plan/treatment(s) is/are subject to change based on patient's health status, clinical progression and re- assessment by fellow clinical providers in the ED. Further treatment and workup at subsequent clinical providers discretion. Patient/guardians urged not to elope from the ED as their condition may be serious if not clinically assessed and managed. Initial orders include: 1- Patient sent to MAIN ED for further evaluation and treatment 2- cardiac protocol
[2019-11-07 18:56] LABS: Basophils # (Auto) 0.1 K/mm3 (0.0-0.1); Basophils % (Auto) 1.1 % (0.0-1.8); Eosinophils % (Auto) 0.7 % (0.0-4.3); Hematocrit 40.2 % (35.5-45.6); Hemoglobin 13.1 gm/dl (11.8-15.2); Lymphocytes # (Auto) 1.4 K/mm3 (1.2-5.4); Lymphocytes % (Auto) 22.1 % (13.4-35.0); Mean Corpuscular HGB Conc 33 % (32-34); Mean Corpuscular Volume 74 fl (84-94); Monocytes # (Auto) 0.9 K/mm3 (0.0-0.8); Monocytes % (Auto) 13.9 % (0.0-7.3); Platelet Count 265 K/mm3 (140-440); Red Cell Distribution Width 16.9 % (13.2-15.2)
[2019-11-07 19:11] LABS: INR 1.03 (0.87-1.13)
[2019-11-07 19:12] LABS: Partial Thromboplastin Time 27.7 Sec. (24.2-36.6)
[2019-11-07 19:24] LABS: Alanine Aminotransferase 19 units/L (7-56); Albumin 3.8 g/dL (3.9-5); BUN/Creatinine Ratio 7; Blood Urea Nitrogen 8 mg/dL (9-20); Calcium 9.1 mg/dL (8.4-10.2); Hemolysis Index 12
--- NOTE | 2019-11-07 19:36 | XRay Report ---
CHEST 1 VIEW INDICATION: Chest Pain. COMPARISON: 09/13/19 FINDINGS: Support devices: None. Heart: Within normal limits. Lungs/Pleura: No acute air space or interstitial disease. Additional findings: None. IMPRESSION: 1. No acute findings. Signer Name: Dylon Figueredo MD Signed: 11/07/2019 7:32 PM Workstation Name: [id number]
--- NOTE | 2019-11-07 22:20 | Emergency Department Report ---
ED General Adult HPI - General Chief complaint: Chest Pain Stated complaint: CHEST PAIN/HEADACHE Time Seen by Provider: 11/07/19 18:11 Source: patient Mode of arrival: Ambulatory Limitations: No Limitations - History of Present Illness Initial comments: Patient is a 34-year-old male that presents emergency room with complaints of chest pain x4 days. Patient also complains of a headache times a month. Patient also complains of cough, fever and shortness of breath x4 days. Patient states that his symptoms are better with rest and worse with exertion. Patient states he has a history of hypertension, CHF, hyperlipidemia. Patient denies nausea and vomiting. Patient states his chest pain is also worse with movement and palpation. -: Sudden Location: chest Radiation: non-radiation Severity scale (0 -10): 8 Quality: sharp, constant Consistency: constant Improves with: rest Worsens with: movement, other Associated Symptoms: chest pain, cough, fever/chills, headaches, shortness of breath. denies: diaphoresis, loss of appetite, malaise, nausea/vomiting, rash, seizure, syncope, weakness Treatments Prior to Arrival: other - Related Data Previous Rx's Medication Instructions Recorded Last Taken Type Albuterol INH(or & Nicu Only) 2 puff IH QID PRN #8.5 gram 08/30/19 Unknown Rx [ProAir HFA Inhaler] Aspirin [Aspirin BABY CHEW TAB] 81 mg PO QDAY #30 tab.chew 08/30/19 Unknown Rx Furosemide [Lasix TAB] 40 mg PO DAILY@0600 #30 tablet 08/30/19 Unknown Rx NIFEdipine XL [Procardia Xl] 30 mg PO QDAY #30 tablet 08/30/19 Unknown Rx Pravastatin [Pravachol] 40 mg PO QHS #30 tablet 08/30/19 Unknown Rx Spironolactone [Aldactone] 25 mg PO QDAY #30 tablet 08/30/19 Unknown Rx carvediloL [Coreg] 6.25 mg PO BID #60 tablet 08/30/19 Unknown Rx lisinopriL [Zestril TAB] 20 mg PO QDAY #30 tablet 08/30/19 Unknown Rx Doxycycline Hyclate [Doxycycline 100 mg PO Q12HR 10 Days #20 tab 11/07/19 Unknown Rx Hyclate TAB] methylPREDNISolone [Medrol 4MG 4 mg PO DAILY 6 Days #1 tab.ds.pk 11/07/19 Unknown Rx DOSEPAK (21 tabs)] Allergies Allergy/AdvReac Type Severity Reaction Status Date / Time No Known Allergies Allergy Verified 09/13/19 11:43 ED Review of Systems ROS: Stated complaint: CHEST PAIN/HEADACHE Other details as noted in HPI Constitutional: chills, fever Eyes: denies: eye pain, eye discharge, vision change ENT: denies: ear pain, throat pain Respiratory: cough, shortness of breath, SOB with exertion, SOB at rest. denies: wheezing Cardiovascular: chest pain, dyspnea on exertion. denies: palpitations Endocrine: no symptoms reported Gastrointestinal: denies: abdominal pain, nausea, diarrhea Genitourinary: denies: urgency, dysuria Musculoskeletal: denies: back pain, joint swelling, arthralgia Skin: denies: rash, lesions Neurological: denies: headache, weakness, paresthesias Psychiatric: denies: anxiety, depression Hematological/Lymphatic: denies: easy bleeding, easy bruising ED Past Medical Hx - Past Medical History Previous Medical History?: Yes Hx Congestive Heart Failure: Yes Hx COPD: Yes Additional medical history: hidranitis supp. - Surgical History Past Surgical History?: Yes Additional Surgical History: neck, lower back, left rib, "cut open in my throat" - Family History Family history: no significant - Social History Smoking Status: Never Smoker Substance Use Type: None - Medications Home Medications: Home Medications Medication Instructions Recorded Confirmed Last Taken Type Albuterol INH(or & Nicu Only) 2 puff IH QID PRN #8.5 gram 08/30/19 Unknown Rx [ProAir HFA Inhaler] Aspirin [Aspirin BABY CHEW TAB] 81 mg PO QDAY #30 tab.chew 08/30/19 Unknown Rx Furosemide [Lasix TAB] 40 mg PO DAILY@0600 #30 tablet 08/30/19 Unknown Rx NIFEdipine XL [Procardia Xl] 30 mg PO QDAY #30 tablet 08/30/19 Unknown Rx Pravastatin [Pravachol] 40 mg PO QHS #30 tablet 08/30/19 Unknown Rx Spironolactone [Aldactone] 25 mg PO QDAY #30 tablet 08/30/19 Unknown Rx carvediloL [Coreg] 6.25 mg PO BID #60 tablet 08/30/19 Unknown Rx lisinopriL [Zestril TAB] 20 mg PO QDAY #30 tablet 08/30/19 Unknown Rx Doxycycline Hyclate [Doxycycline 100 mg PO Q12HR 10 Days #20 tab 11/07/19 Unknown Rx Hyclate TAB] methylPREDNISolone [Medrol 4MG 4 mg PO DAILY 6 Days #1 tab.ds.pk 11/07/19 Unknown Rx DOSEPAK (21 tabs)] ED Physical Exam - General Limitations: No Limitations General appearance: alert, in no apparent distress - Head Head exam: Present: atraumatic, normocephalic - Eye Eye exam: Present: normal appearance - ENT ENT exam: Present: mucous membranes moist, other (Enlarged nasal turbinates with purulent discharge. Sinus tenderness noted) - Neck Neck exam: Present: normal inspection - Respiratory Respiratory exam: Present: normal lung sounds bilaterally, chest wall tenderness. Absent: respiratory distress, wheezes, rales, rhonchi, accessory muscle use, decreased breath sounds - Cardiovascular Cardiovascular Exam: Present: regular rate, normal rhythm. Absent: systolic mu rmur, diastolic murmur, rubs, gallop - GI/Abdominal GI/Abdominal exam: Present: soft, normal bowel sounds. Absent: distended, tenderness, guarding - Rectal Rectal exam: Present: deferred - Extremities Exam Extremities exam: Present: normal inspection, pedal edema. Absent: full ROM, tenderness, calf tenderness - Back Exam Back exam: Present: normal inspection. Absent: full ROM, tenderness - Neurological Exam Neurological exam: Present: alert, oriented X3 - Psychiatric Psychiatric exam: Present: normal affect, normal mood - Skin Skin exam: Present: warm, dry, intact, normal color. Absent: rash ED Course Vital Signs 11/07/19 11/07/19 11/07/19 17:17 18:08 21:38 Temperature 100.4 F H 100.4 F H Pulse Rate 91 H 82 85 Respiratory 22 22 21 Rate Blood Pressure 138/75 138/75 O2 Sat by Pulse 94 96 Oximetry 11/07/19 11/07/19 21:43 21:45 Temperature Pulse Rate 89 Respiratory 18 15 Rate Blood Pressure 129/59 O2 Sat by Pulse 96 Oximetry - Reevaluation(s) Reevaluation #1: I discussed all results and clinical findings with patient. I discussed plan of care with patient. Patient agrees with plan of care. Patient is stable for discharge. Patient will be discharged home. Patient given discharge instructions. Patient voiced understanding of discharge instructions. 11/07/19 23:33 ED Medical Decision Making - Lab Data Result diagrams: 11/07/19 18:37 11/07/19 18:37 - EKG Data -: EKG Interpreted by Me EKG shows normal: sinus rhythm, axis, intervals, QRS complexes, ST-T waves Rate: normal - Radiology Data Radiology results: report reviewed, image reviewed interpreted by me: No acute findings on chest x-ray. - Medical Decision Making Patient is a 34-year-old male that presents emergency room for multiple complaints. Patient complains of shortness of breath, chest pain, fever, cough. Patient's chest pain, cough fever and shortness of breath going on for 4 days. Patient's headaches been going on for 1 month. Patient's clinical findings are consistent with a fever and a sinusitis. Patient chest pain secondary to costochondritis. Patient chest pain is reproducible on exam. Patient will be treated with antibiotics and steroids. Patient's flu and strep negative. Patient's labs are unremarkable. - Differential Diagnosis cp. sob. quigley. sinusitis, chest wall pain, fever, uri Critical care attestation.: If time is entered above; I have spent that time in minutes in the direct care of this critically ill patient, excluding procedure time. ED Disposition Clinical Impression: Chest wall tenderness, Costochondritis, acute, SOB (shortness of breath), Cough Chest pain Qualifiers: Chest pain type: unspecified Qualified Code(s): R07.9 - Chest pain, unspecified Headache Qualifiers: Headache type: unspecified Headache chronicity pattern: acute headache Intractability: intractable Qualified Code(s): R51 - Headache Sinusitis Qualifiers: Sinusitis location: frontal Chronicity: acute Recurrence: recurrent Qualified Code(s): J01.11 - Acute recurrent frontal sinusitis Fever Qualifiers: Fever type: unspecified Qualified Code(s): R50.9 - Fever, unspecified URI (upper respiratory infection) Qualifiers: URI type: unspecified URI Qualified Code(s): J06.9 - Acute upper respiratory infection, unspecified Disposition: 09 OP ADMIT IP TO THIS HOSP Is pt being admited?: No Does the pt Need Aspirin: No Condition: Stable Instructions: Costochondritis (ED), Chest Pain (ED), Sinusitis (ED), Acute Bacterial Rhinosinusitis (ED), Acute Headache (ED), Cold Symptoms (ED), Upper Respiratory Infection (ED) Additional Instructions: Patient to follow-up with primary care in 2 to 3 days. Patient to return to ER if condition worsens or changes or new symptoms arise. Patient to follow-up with network security administrator in 2 to 3 days. Patient to rest. Patient to take Tylenol as needed for pain. Patient to increase water. Patient to take meds as directed. Patient to continue all other medications. Prescriptions: Doxycycline Hyclate [Doxycycline Hyclate TAB] 100 mg PO Q12HR 10 Days #20 tab methylPREDNISolone [Medrol 4MG DOSEPAK (21 tabs)] 4 mg PO DAILY 6 Days #1 tab .ds.pk Referrals: PRIMARY CARE, [Primary Care Provider] - 2-3 Days Time of Disposition: 23:40
[2019-11-08 00:22] VITALS: BP 131/102
== END 2019-11-08 00:22 | disposition admitted as inpatient to this hospital (09) ==
LOC: ED 17:04
DX: M94.0 Chondrocostal junction syndrome [Tietze] (principal); J32.9 Chronic sinusitis, unspecified; J06.9 Acute upper respiratory infection, unspecified; I50.9 Heart failure, unspecified; J44.9 Chronic obstructive pulmonary disease, unspecified; Z79.899 Other long term (current) drug therapy
CPT/HCPCS: 36415; 71045; 80053; 83880; 84484; 85025; 85610; 85730; 87116; 87400; 87430; 93005; 93010